=== PATIENT | female | born 1940 | race Caucasian/White ===

== ENCOUNTER 2020-03-25 12:29 | Outpatient (CLI) | payer MEDICARE, SELFPAY ==
--- NOTE | ~2020-03-25 | MMUS_ITS ---
EXAMINATION: MM diagnostic bisi BI w eliud, US breast RT limited HISTORY: Bruising of the right breast. TECHNIQUE: Additional 3-D tomosynthesis images of the breasts were performed and synthetic 2-D images were generated. CAD analysis was submitted and interpreted. High resolution right breast ultrasound was performed. COMPARISON: Comparison to multiple prior studies sequentially, with oldest reviewed study dated 09/2012. FINDINGS: MAMMOGRAPHIC FINDINGS: Breast composed of scattered areas of fibroglandular density. There are no suspicious masses, calcifi cations or architectural distortion in either breast to suggest malignancy. ULTRASOUND: Right breast ultrasound: In the area of palpable concern at 10:00 near the nipple there is a hyperechoic structure measuring 1 1 mm, consistent with focal fat, possibly fat necrosis. No suspicious masses to suggest malignancy. IMPRESSION: 1. No mammographic or sonographic evidence for malignancy. 2. Routine yearly screening mammogram and regular clinical breast examination are recommended. BI-RADS Category 2: Benign finding(s). Reviewed, dictated and finalized at location D. IMPRESSION: 1. No mammographic or sonographic evidence for malignancy. 2. Routine yearly screening mammogram and regular clinical breast examination a re recommended. BI-RADS Category 2: Benign finding(s).
== END 2020-03-25 12:30 | disposition home or self-care (01) ==
PROVIDERS: PCP Nurse Practitioner Family; Visit Provider Nurse Practitioner Family
DX: N63.10 Unspecified lump in the right breast, unspecified quadrant (principal); R92.2 Inconclusive mammogram
CPT/HCPCS: 76642; 77062; 77066; G0279

== ENCOUNTER 2020-08-24 07:49 | Outpatient (CLI) | payer MEDICARE, SELFPAY ==
--- NOTE | ~2020-08-24 | DEXA_ITS ---
Bone Density Report Name: Emperatriz Clark Age: 80 Sex: Female Ethnicity: White Date of : 1940 Indication: osteopenia; monitoring treatment; height loss; prior fracture; hysterectomy; Referring Provider: Sofie, Julieta Campbell Study: Bone densitometry was performed. Exam Date: August 24, 2020 Accession number: [id number] Bone Density: Region BMD T-score Z-score Classification AP Spine (L1, L2) 0.963 -0.1 2.3 Normal Femoral Neck (Left) 0.604 -2.2 0.0 Osteopenia Total Hip (Left) 0.678 -2.2 -0.2 Osteopenia Total Hip Bilateral Avg 0.711 -1.9 0.1 Osteopenia Femoral Neck (Right) 0.606 -2.2 0.0 Osteopenia Total Hip (Right) 0.743 -1.6 0.3 Osteopenia World Health Organization criteria for BMD impression classify patients as: Normal (T-score at or above -1.0), Osteopenia (T-score between -1.0 and -2.5), or Osteoporosis (T-score at or below -2.5). 10-year Fracture Risk: FRAX not reported because: Treated for osteoporosis Previous Exams: Region Exam Age BMD T-score BMD Change BMD Change Date g/cm2 vs Baseline vs Previous AP Spine(L1, L2) 08/24/2020 80 0.963 -0.1 0.080(9.1%)# 0.043(4.7%)* 08/23/2018 78 0.919 -0.5 0.037(4.1%)# -0.026(-2.7%)* 07/19/2016 75 0.945 -0.3 0.062(7.1%)# 0.003(0.3%) 06/26/2014 73 0.942 -0.3 0.060(6.8%)# 0.051(5.8%)# 06/06/2011 70 0.891 -0.8 0.008(0.9%) -0.020(-2.2%) 05/02/2009 68 0.911 -0.6 0.028(3.2%)* 0.023(2.6%) 09/21/2006 66 0.888 -0.8 0.005(0.6%) 0.005(0.6%) 09/13/2004 64 0.883 -0.9 Total Hip(Left) 08/24/2020 80 0.678 -2.2 0.031(4.7%)# -0.043(-6.0%)* 08/23/2018 78 0.721 -1.8 0.074(11.4%)# 0.027(3.9%)* 07/19/2016 75 0.693 -2.0 0.046(7.2%)# 0.003(0.5%) 06/26/2014 73 0.690 -2.1 0.043(6.7%)# 0.062(9.8%)# 06/06/2011 70 0.628 -2.6 -0.019(-2.9%) -0.033(-5.0%)* 05/02/2009 68 0.661 -2.3 0.014(2.2%) -0.016(-2.4%) 09/21/2006 66 0.677 -2.2 0.030(4.7%)* 0.030(4.7%)* 09/13/2004 64 0.647 -2.4 Total Hip(Right) 08/24/2020 80 0.743 -1.6 0.101(15.8%)# -0.031(-4.0%)* 08/23/2018 78 0.774 -1.4 0.132(20.6%)# 0.034(4.6%)* 07/19/2016 75 0.740 -1.7 0.098(15.2%)# -0.020(-2.7%) 06/26/2014 73 0.760 -1.5 0.118(18.4%)# 0.050(7.1%)# 06/06/2011 70 0.710 -1.9 0.068(10.6%)* 0.008(1.1%) 05/02/2009 68 0.702 -2.0 0.060(9.3%)* 0.046(7.1%)* 09/21/2006 66 0.655 -2.3 0.013(2.1%) 0.013(2.1%) 09/13/2004 64 0.642 -2.5 *Denotes significance at 95% confidence level,
== END 2020-08-24 07:50 | disposition home or self-care (01) ==
LOC: ANHIMG 07:52
PROVIDERS: PCP Nurse Practitioner Family; Visit Provider Nurse Practitioner Family
DX: M85.852 Other specified disorders of bone density and structure, left thigh (principal); M85.851 Other specified disorders of bone density and structure, right thigh; M85.88 Other specified disorders of bone density and structure, other site
CPT/HCPCS: 77080

== ENCOUNTER 2021-04-30 08:14 | Outpatient (CLI) | payer MEDICARE, SELFPAY ==
--- NOTE | ~2021-04-30 | MM_ITS ---
EXAMINATION: MM screening bisi BI w eliud HISTORY: Screening TECHNIQUE: Craniocaudal and mediolateral oblique 3-D tomosynthesis images were obtained and synthetic 2-D images were generated. CAD analysis was submitted and interpreted. COMPARISON: Comparison to multiple prior studies sequentially, with oldest reviewed study dated 10/2013. BREAST PARENCHYMAL COMPOSITION: There are scattered areas of fibroglandular density. FINDINGS: There is no evidence of suspicious mass, calcification, or architectural distortion to sugg est malignancy in either breast. There has been no suspicious interval change. IMPRESSION: 1. No mammographic evidence of malignancy. 2. Recommend routine screening mammography in one year. BI-RADS Category 1: Negative Reviewed, dictated and finalized at location A.
== END 2021-04-30 08:15 | disposition home or self-care (01) ==
LOC: ANHIMG 08:17
PROVIDERS: PCP Nurse Practitioner Family; Visit Provider Nurse Practitioner Family
DX: Z12.31 Encounter for screening mammogram for malignant neoplasm of breast (principal)
CPT/HCPCS: 77063; 77067

== ENCOUNTER 2021-11-19 07:35 | Emergency (ER) | payer MEDICARE, SELFPAY ==
[2021-11-19] VITALS (30 sets, daily range): BP systolic 116–155; BP diastolic 62–86; PULSE 73–90; RESP 12–29; O2SAT 94–100
--- NOTE | ~2021-11-19 | CT_ITS ---
EXAMINATION: CTA brain carotid DATE: 11/19/2021 08:37 INDICATION: Dizziness. Ataxia. TECHNIQUE: Computed tomographic angiography (CTA) of the head was performed without and with 100 mL O mnipaque-350 intravenous contrast. CTA of the neck was performed with intravenous contrast. Automated exposure control and iterative reconstruction technique were employed. The dose-length product was 1 469.96 mGy-cm. Maximum intensity projection and volume rendered 3D-reconstructions were created by vanesa krueger technologist on a separate workstation. COMPARISON: Head CT 01/15/2004 FINDINGS: HEAD CTA: There are scattered areas of low attenuation in the cerebral white matter. There is no intr acranial hemorrhage, acute infarction, or abnormal intracranial mass lesion. The ventricles are anai l in size. There is mild mucosal thickening in the paranasal sinuses. The mastoid air cells are anai l. The orbits are normal. The vertebral arteries are codominant. There is no significant stenosis of basilar artery or the posterior cerebral arteries. There is no significant stenosis of the intracrani al internal carotid arteries or the anterior or middle cerebral arteries. Anterior communicating ney ry is normal. The posterior communicating arteries are normal. There is no aneurysm. NECK CTA: There is mild scarring at the lung apices. There is a 10 mm nodule in left thyroid lobe, li manju not clinically significant. There are no pathologically enlarged lymph nodes. There is no signif icant stenosis of the vertebral arteries. There is mild plaque in the proximal internal carotid arter ies. There is 0% stenosis of the proximal right internal carotid artery relative to normal distal art laci lumen diameter (NASCET criteria). There is 12% stenosis of the proximal left internal carotid art laci relative to normal distal artery lumen diameter. There is moderate cervical spondylosis. IMPRESSION: 1. Mild nonspecific cerebral white matter disease, which likely represents chronic small vessel ische cuauhtemoc disease. 2. No aneurysm or significant intracranial arterial stenosis. 3. 0% stenosis of the proximal right internal carotid artery relative to normal distal artery lumen d iameter (NASCET criteria). 4. 12% stenosis of the proximal left internal carotid artery relative to normal distal artery lumen d iameter. Reviewed, dictated and finalized at location A. NEYMAN GLAZIER IMPRESSION: 1. 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 2. No aneurysm or significant intracranial arterial stenosis. 3. 0% stenosis of the proximal right internal carotid artery relative to normal distal artery lumen diameter (NASCET criteria). 4. 12% stenosis of the proximal left internal carotid artery relative to normal distal artery lumen diameter.
--- NOTE | 2021-11-19 07:40 | ECG_ITS ---
Measurements Intervals [place] Rate: 69 P: 58 DC: 151 QRS: 27 QRSD: 77 T: 69 QT: 384 QTc: 411 Interpretive Statements SINUS RHYTHM MINIMAL Q WAVES- HIGH LATERAL LEADS BORDERLINE ECG Electronically Signed On 11-19-2021 9:50:38 SATELLITE INSTRUCTION FACILITATOR by James Dotson D.O.
[2021-11-19 07:54] LABS: Basophils Percent Auto 0.6 % (0.2-1.2); Eosinophils Absolute Auto 0.1 K/mm3 (0-0.3); Eosinophils Percent Auto 1.7 % (0-4.4); Hematocrit 44.8 % (37.0-47.0); Hemoglobin 15.4 g/dL (12.0-15.0); Immature Granulocyte Absolute 0.01 K/mm3 (0.00-0.031); Immature Granulocyte Percent A 0.2 % (0-0.5); Lymphocytes Absolute Auto 1.26 K/mm3 (0.9-3.2); Lymphocytes Percent Auto 19.1 % (18.3-44.2); Mean Corpuscular HGB Conc 34.4 g/dl (32-36); Mean Corpuscular Volume 93.1 fl (80-100); Mean Platelet Volume 9.7 fl (7.4-10.4); Monocytes Absolute Auto 0.4 K/mm3 (0.1-0.6); Monocytes Percent Auto 6.5 % (2.6-8.5); Neutrophils Absolute Auto 4.8 K/mm3 (1.3-6.7); Neutrophils Percent Auto 71.9 % (45.5-73.1); Platelet Count Result 236 k/mm3 (150-375); Red Blood Count 4.81 M/mm3 (4.2-5.4); Red Cell Distribution Width 13.1 % (11.5-14.5); White Blood Count 6.6 K/mm3 (4.5-10.0)
[2021-11-19 08:13] LABS: Alanine Aminotransferase 16 U/L (4-35); Albumin Level 4.2 g/dL (3.5-5.1); Alkaline Phosphatase 88 U/L (38-126); Anion Gap 8 mmol/L (8-16); Aspartate Amino Transferase 23 U/L (14-36); Bilirubin,Total 0.8 mg/dL (0.2-1.3); Blood Urea Nitrogen 12 mg/dL (7-17); Calcium 9.5 mg/dL (8.4-10.2); Carbon Dioxide 27 mmol/L (22-30); Chloride 104 mmol/L (98-107); Estimated Glomerular Filt Rate > 60; Glucose 111 mg/dL (65-110); Lipase 77 U/L (23-300); Potassium 3.9 mmol/L (3.4-5.0); Sodium 139 mmol/L (137-145)
--- NOTE | 2021-11-19 08:25 | ED.DIZZY ---
HPI - Dizziness General Chief Complaint: Dizziness Stated Complaint: dizzy with nausea Time Seen by Provider: 11/19/21 07:44 Source: patient and RN notes reviewed Mode of arrival: ambulatory Limitations: no limitations History of Present Illness HPI Narrative: This is a 81 year old female who presents for evaluation of dizziness. She noticed dizziness yesterday associated with nausea and dry heaves. She states her dizziness is not spinning . It is worse with turn her head to the left. She is most comfortable laying on her right side. This started 2 weeks ago and she was evaluated by PCP. She reports she had normal labs performed and she is scheduled to get carotid Doppler and brain scan . Her symptoms resolved but returned yesterday. She reports she is able to walk by hold onto the wall. She denies headache, blurred vision, speech difficulty, focal weakness, numbness or tingling. EMS gave patient Zofran in route. Related Data Home Medications Medication Instructions Recorded Confirmed ascorbate calcium (vitamin C) 500 500 mg PO DAILY 03/10/20 03/10/20 mg tablet aspirin 81 mg tablet,delayed 81 mg PO DAILY 03/10/20 03/10/20 release cholecalciferol (vitamin D3) 10 10 mcg PO DAILY 03/10/20 03/10/20 mcg (400 unit) capsule ibandronate 150 mg tablet 150 mg PO ONCE 03/10/20 03/10/20 levothyroxine 75 mcg capsule 75 mcg PO DAILY 03/10/20 03/10/20 Allergies Allergy/AdvReac Type Severity Reaction Status Date / Time No Known Allergies Allergy Verified 11/19/21 07:41 Review of Systems Review of Systems: All systems reviewed & are unremarkable except as noted in HPI and below Constitutional: Constitutional: Denies chills Eyes: Eyes: Denies change in vision and Denies photophobia ENT: Denies dysphagia, Reports dizziness, Denies nasal congestion and Denies sore throat Cardiovascular: Cardiovascular: Denies chest pain and Denies radiating jaw, neck or arm pain Respiratory: Respiratory: Reports no additional respiratory complaints, Denies chest congestion, Denies cough and Denies dyspnea Gastrointestinal: Gastrointestinal: Denies abdominal pain, Denies diarrhea, Reports nausea and Denies vomiting Neurologic: Denies vertigo, Reports dizziness, Denies headache(s), Denies focal weakness and Denies numbness [facility] Past Medical History Medical History (Updated 11/19/21 @ 12:33 by Perlita Obregon MD) High cholesterol Osteoporosis Thyroid disorder Vitamin D deficiency Surgical History Surgical History H/O knee surgery knee cap repair H/O: hysterectomy Ulnar nerve injury Family History Family History Father Heart disease Mother Heart disease S/P triple vessel bypass Sibling Hypertension Unknown Heart disease Cerebrovascular accident Hypertension Social History Social History Smoking status: Never smoker Alcohol intake: never Substance use: never Gender identity (if verbalized by the patient): Female Exam Const: General: no acute distress and alert Orientation/consciousness: patient oriented x3 HENMT: Head: normocephalic and atraumatic Ears: hearing grossly normal bilaterally, external ears normal and TM's normal bilaterally Face and sinus: normal facial exam, sinuses nontender and face symmetric Mouth: Yes Normal oral and palatal mucosa present, Yes lip normal, Yes tongue normal, Yes oropharynx normal and Yes moist mucous membranes Throat: posterior oropharynx normal, tonsils normal and uvula midline Eyes: Pupils: Equal, round and reactive pupils present EOM: EOMs intact bilaterally Chest: Chest palpation & inspection: normal inspection of the chest Resp: Effort & Inspection: normal respiratory effort and no retractions Auscultation: clear to auscultation bilaterally C
--- NOTE | 2021-11-19 08:30 | PC.NURSE ---
PT. REPORTS UNABLE TO VOID AT THIS TIME.
[2021-11-19] MEDS: MECLIZINE HCL 25 MG TABLET PO (08:45)
[2021-11-19] MEDS: SODIUM CHLORIDE 0.9% IV 1,000 ML 999 ML IV CONT (08:45)
[2021-11-19 09:26] LABS: Add Urine Microscopic? YES; Appearance Urine Clear (Clear); Bilirubin Urine Negative (Negative); Blood Urine Negative (Negative); Color Urine Straw (Yellow); Glucose Urine UA Negative (Negative); Ketones Urine Trace mg/dL (Negative); Leukocyte Esterase Ur Negative LEU/UL (Negative); Nitrate Urine Negative (Negative); Protein Urine Negative (Negative); RBC Urine 0-2 /hpf (0-2); Specific Grav Ur 1.023 (1.001-1.035); Urobilinogen Urine Negative mg/dL (<2.0); WBC Urine 0-3 /hpf
[2021-11-19] MEDS: PROMETHAZINE HCL 25 MG/ML AMPUL 12.5 MG IV PUSH (10:06)
== END 2021-11-19 12:30 | disposition home or self-care (01) ==
PROVIDERS: Emergency Provider General Practice; PCP Nurse Practitioner Family
DX: R42 Dizziness and giddiness (principal); E78.00 Pure hypercholesterolemia, unspecified; M81.0 Age-related osteoporosis without current pathological fracture; E07.9 Disorder of thyroid, unspecified; E55.9 Vitamin D deficiency, unspecified; Z79.82 Long term (current) use of aspirin; R90.82 White matter disease, unspecified; R94.31 Abnormal electrocardiogram [ECG] [EKG]
CPT/HCPCS: 36415; 70496; 70498; 80053; 81001; 83690; 85025; 93005; 96361; 96374; 99284; A9270; J2550; J7030; Q9967

== ENCOUNTER 2022-03-03 07:21 | Outpatient (CLI) | payer MEDICARE, SELFPAY ==
--- NOTE | ~2022-03-03 | DEXA_ITS ---
Bone Density Report Name: BRUNA LUJAN Age: 81 Sex: Female Ethnicity: White Date of : 1940 Indication: osteopenia; monitoring treatment; height loss; hysterectomy; postmenopausal Referring Provider: VIVEK, ELEAZAR Campbell Study: Bone densitometry was performed. Exam Date: March 03, 2022 Accession number: [id number] Bone Density: Region BMD T-score Z-score Classification AP Spine(L1, L2, L3) 1.016 0.0 2.6 Normal Femoral Neck (Left) 0.610 -2.2 0.1 Osteopenia Total Hip (Left) 0.661 -2.3 -0.3 Osteopenia Femoral Neck (Right) 0.606 -2.2 0.1 Osteopenia Total Hip (Right) 0.727 -1.8 0.3 Osteopenia Total Hip Mean 0.694 -2.1 0.0 Osteopenia World Health Organization criteria for BMD impression classify patients as: Normal (T-score at or above -1.0), Osteopenia (T-score between -1.0 and -2.5), or Osteoporosis (T-score at or below -2.5). 10-year Fracture Risk: FRAX not reported because: Treated for osteoporosis Previous Exams: Region Exam Age BMD T-score BMD Change BMD Change Date g/cm2 vs Baseline vs Previous AP Spine (L1-L3) 03/03/2022 81 1.016 0.0 0.023 (2.3%) 0.014 (1.4%) 08/23/2018 78 1.002 -0.1 0.009 (0.9%) 0.007 (0.7%) 07/19/2016 75 0.995 -0.2 0.002 (0.2%) 0.002 (0.2%) 06/26/2014 73 0.994 -0.2 Total Hip(Left) 03/03/2022 81 0.661 -2.3 -0.029 (-4.3%) -0.017 (-2.5%) 08/24/2020 80 0.678 -2.2 -0.013 (-1.8%) -0.043 (-6.0%) 08/23/2018 78 0.721 -1.8 0.031 (4.4%)* 0.027 (3.9%)* 07/19/2016 75 0.693 -2.0 0.003 (0.5%) 0.003 (0.5%) 06/26/2014 73 0.690 -2.1 Total Hip(Right) 03/03/2022 81 0.727 -1.8 -0.033 (-4.4%) -0.016 (-2.2%) 08/24/2020 80 0.743 -1.6 -0.017 (-2.2%) -0.031 (-4.0%) 08/23/2018 78 0.774 -1.4 0.014 (1.8%) 0.034 (4.6%)* 07/19/2016 75 0.740 -1.7 -0.020 (-2.7%) -0.020 (-2.7%) 06/26/2014 73 0.760 -1.5 *Denotes significance at 95% confidence level, LSC for AP Spine = 0.022 g/cm2, LSC for Total Hip = 0.027 g/cm2 Clinical Information Provided by Patient: Is being treated for osteoporosis Has used the following medications: Boniva (i.e. ibandronate), Vitamin D Has the following medical conditions: Hysterectomy Patient maximum height was 67.5 Menopause Age: 30 Does not regularly consume dairy products Onset of menses at age 15 Number of children 3 Impression: The patient has low bone mass, based on the Left Total Hip T-score.
== END 2022-03-03 07:22 | disposition home or self-care (01) ==
PROVIDERS: PCP Nurse Practitioner Family; Visit Provider Nurse Practitioner Family
DX: M81.0 Age-related osteoporosis without current pathological fracture (principal); M85.852 Other specified disorders of bone density and structure, left thigh; M85.851 Other specified disorders of bone density and structure, right thigh
CPT/HCPCS: 77080

== ENCOUNTER 2022-09-28 11:43 | Outpatient (CLI) | payer MEDICARE, SELFPAY ==
--- NOTE | ~2022-09-28 | MM_ITS ---
EXAMINATION: MM screening [facility] BI w eliud HISTORY: Screening mammogram TECHNIQUE: Craniocaudal and mediolateral oblique 3-D tomosynthesis images were obtained and synthetic 2-D images were generated. CAD analysis was submitted and interpreted. COMPARISON: 04/30/2021, 03/25/2020, 08/14/2019, 07/31/2017 BREAST PARENCHYMAL COMPOSITION: There are scattered areas of fibroglandular density. FINDINGS: No suspicious mass, calcification, or architectural distortion are identified in either nadja ast to suggest malignancy. There has been no suspicious interval change. IMPRESSION: 1. No mammographic evidence of malignancy. 2. Recommend routine screening mammography in one year. BI-RADS Category 1: Negative Reviewed, dictated and finalized at location A. DESIGN ENGINEER
== END 2022-09-28 11:44 | disposition home or self-care (01) ==
LOC: ANHIMG 11:45
PROVIDERS: PCP Nurse Practitioner Family; Visit Provider Nurse Practitioner Family
DX: Z12.31 Encounter for screening mammogram for malignant neoplasm of breast (principal)
CPT/HCPCS: 77063; 77067

== ENCOUNTER → 2023-08-08 10:09 | Outpatient (REF) | payer MEDICARE, SELFPAY | LOC: ANHLAB 10:09 | PROVIDERS: PCP Nurse Practitioner Family; Visit Provider Plastic Surgery | DX: R22.0 Localized swelling, mass and lump, head (principal) | CPT/HCPCS: 88305 ==

== ENCOUNTER 2024-01-27 09:47 | Observation (INO) | payer MEDICARE, SELFPAY ==
[2024-01-27] VITALS (48 sets, daily range): BP systolic 123–171; BP diastolic 57–102; PULSE 62–94; RESP 8–23; TEMP 36.5–36.9; O2SAT 92–100; BMI 25.0
--- NOTE | ~2024-01-27 | MR_ITS ---
EXAMINATION: MR brain/brain stem wo/w con DATE: 01/28/2024 14:03 INDICATION: Vertigo TECHNIQUE: Magnetic resonance imaging (MRI) of the brain and brainstem was performed without and with 15 mL Multihance intravenous contrast. Sequences included sagittal and axial T1-weighted SE, axial d iffusion-weighted FS SE, axial 3D SWAN, axial T2-weighted FLAIR, and axial T2-weighted FSE. Postcontr ast axial and coronal T1-weighted SE was obtained. Apparent diffusion coefficient (ADC) maps were cre ated. COMPARISON: None. FINDINGS: There are no areas of restricted diffusion to suggest acute infarction. No intracranial hemorrhage or abnormal intracranial mass lesion. There are scattered areas of nonspecific increased T2-weighted si gnal intensity in the cerebral white matter, predominantly involving the deep and periventricular whi te matter. There are no intraparenchymal signal abnormalities seen on the other pulse sequences. The ventricles are symmetric and normal in size. There are no abnormal extra-axial fluid collections. Jorge w voids are seen in the cerebral arteries on the T2-weighted sequences consistent with their expected patency. Mild mucosal thickening the bilateral ethmoid sinuses. Visualized orbits and soft tissues a re unremarkable. There are no areas of abnormal enhancement on the post contrast images. IMPRESSION: 1. No acute intracranial process or abnormally enhancing brain lesions. 2. Moderate scattered periventricular predominant nonspecific white matter T2 hyperintensity which is within normal limits for age and likely sequela of chronic small vessel ischemic disease. Reviewed, dictated and finalized at location A. IMPRESSION: 1. No acute intracranial process or abnormally enhancing brain lesions. 2. Moderate scattered periventricular predominant nonspecific white matter T2 h yperintensity which is within normal limits for age and likely sequela of chron ic small vessel ischemic disease.
--- NOTE | ~2024-01-27 | US_ITS ---
EXAMINATION: US carotid duplex BI DATE: 01/28/2024 11:26 INDICATION: Infarct in the right thalamus. Lightheadedness. Dizziness. TECHNIQUE: Grayscale, color Doppler, and pulsed Doppler images of the cervical carotid arteries were obtained. The degree of vessel stenosis is placed in one of the following categories: normal, <50%, 5 0-69%, >=70% but less than near-occlusion, near-occlusion, or total occlusion. Note that percent sten osis relative to normal distal artery lumen diameter is indirectly measured from velocity measurement s as described by Zeyad, et al. Radiology 2003; 229:340-346. COMPARISON: CTA neck 11/19/2021 FINDINGS: RIGHT: The right common carotid artery (CCA) peak systolic velocity (PSV) is 61 cm/s. The right internal car otid artery (ICA) PSV is 59 cm/s. The right ICA end-diastolic velocity (EDV) is 20 cm/s. The right IC A/CCA PSV ratio is 1.0. Grayscale and color Doppler images yield an estimate of <50% diameter reducti on from plaque in the ICA. There is antegrade flow in the right vertebral artery. LEFT: The left CCA PSV is 63 cm/s. The left ICA PSV is 64 cm/s. The left ICA EDV is 18 cm/s. The left ICA/C CA PSV ratio is 1.0. Grayscale and color Doppler images yield an estimate of <50% diameter reduction from plaque in the ICA. There is antegrade flow in the left vertebral artery. IMPRESSION: 1. <50% stenosis in the right internal carotid artery. 2. <50% stenosis in the left internal carotid artery. Reviewed, dictated and finalized at location A.
--- NOTE | ~2024-01-27 | CT_ITS ---
EXAMINATION: CT brain wo con DATE: 01/27/2024 11:00 INDICATION: Dizziness TECHNIQUE: Computed tomography (CT) of the head was performed without intravenous contrast. Sagittal and coronal reconstructions were performed. The mA was adjusted according to patient size. Iterative reconstruction technique was employed. The dose-length product was 605.33 mGy-cm. COMPARISON: Head CT and CT angiogram dated 11/19/2021 FINDINGS: No acute intracranial hemorrhage, acute infarction or abnormal extra axial fluid collection. Again se en is moderate scattered white matter hypoattenuation consistent with chronic small vessel ischemic d isease. Symmetric prominence of the sulci consistent with mild age-appropriate diffuse cerebral volum e loss. Ventricles are normal and symmetric. No mass/mass effect. Intracranial calcified cerebral ath erosclerosis is noted. The orbits and mastoid air cells are normal. Mild mucosal thickening the bilat eral ethmoid sinuses. IMPRESSION: 1. Stable appearance of age-related changes in the brain. No acute intracranial process. Reviewed, dictated and finalized at location A.
--- NOTE | 2024-01-27 09:54 | ECG_ITS ---
SEE SCANNED COPY FOR CONFIRMED REPORT MTDD
--- NOTE | 2024-01-27 10:18 | ED.DIZZY ---
HPI - Dizziness General Chief Complaint: Dizziness Stated Complaint: dizzy Time Seen by Provider: 01/27/24 09:49 History of Present Illness HPI Narrative: 83-year-old female presenting to the emergency department for evaluation of onset of dizziness. Patient states she woke up this morning she felt dizzy and lightheaded. Patient denies any spinning sensation. Patient states that she did not drink very much water yesterday but did drink multiple diet Cokes. Patient denies any falls or injuries. While laying flat in bed patient denies any current symptoms. Patient denies any chest pain or shortness of breath. Related Data Home Medications Medication Instructions Recorded Confirmed ascorbate calcium (vitamin C) 500 500 mg PO DAILY 03/10/20 01/27/24 mg tablet aspirin 81 mg tablet,delayed 81 mg PO DAILY 03/10/20 01/27/24 release (Estuardo Low Dose Aspirin) ibandronate 150 mg tablet 150 mg PO MONTHLY 03/10/20 01/27/24 levothyroxine 75 mcg capsule 75 mcg PO DAILY 03/10/20 01/27/24 ergocalciferol (vitamin D2) 1,250 1,250 mcg PO WEEKLY 01/27/24 01/27/24 mcg (50,000 unit) capsule Allergies Allergy/AdvReac Type Severity Reaction Status Date / Time No Known Allergies Allergy Verified 08/08/23 09:52 Review of Systems Review of Systems: All systems reviewed & are unremarkable except as noted in HPI and below PMFSH Past Medical History Medical History (Updated 01/27/24 @ 15:57 by Estephania Jones PA-C) History of psoriasis Hyperlipidemia Hypothyroidism Osteoporosis Vitamin D deficiency Surgical History Surgical History (Updated 01/27/24 @ 16:02 by Estephania Jones PA-C) History of hysterectomy History of knee surgery Open reduction internal fixation left patellar fracture status post hardware removal. History of orthopedic surgery Left cubital tunnel release. Family History Family History Father Heart disease Mother Heart disease S/P triple vessel bypass Sibling Hypertension Unknown Heart disease Cerebrovascular accident Hypertension Social History Social History (Updated 01/27/24 @ 15:56 by Estephania Jones PA-C) Social History: Surrogate medical decision maker: Code status: Full code. Smoking status: Never smoker Alcohol intake: never Substance use: never Do You Feel Safe in your Home?: Yes Lack of Transportation: No Lack of Food: Never True Current Housing: I Have Housing Concerned About Future Housing: No Difficulty Paying Gas/Electric Bills: No Difficulty Paying for Meds: No Currently Unemployed: No Education: High School Diploma/GED Difficulty w/ Childcare or Family Care: No Living arrangements: alone Occupation/Education: retired Spiritual care concerns: No Exam Narrative: APPEARANCE: Well appearing, no pain, no distress, well-nourished. HEAD: normocephalic, atraumatic. EYES: PERRLA/EOMI, conjunctivae clear. NOSE: Normal no drainage EARS:TMS clear with good light reflex. THROAT: Pharynx clear, no exudate. NECK: Supple. No adenopathy, no masses. RESPIRATORY: Airway patent, respirations nonlabored. Clear to auscultation bilaterally, no rales, rhonchi, wheezing. CARDIOVASCULAR: Regular rate and rhythm without murmurs rubs or gallops. ABDOMINAL: Soft, nontender, nondistended, normal bowel sounds MUSCULOSKELETAL: Moves all extremities. Strength/ROM intact, No edema, No calf tenderness. NEURO: Alert. Cranial nerves II through XII intact. Grossly intact. Vertigo symptoms able to be induced with sitting up or ambulation. SKIN: Warm, dry. Normal Color Course Course Emergency Course: Patient was having persistent vertigo so she was admitted to the hospitalist for further workup. Vital Signs Vital signs: Vital Signs Temperature 98.2 F 01/27/24 09:49 Pulse Rate 67 01/27/24 09:49 Respiratory Rate 16 01/27/24 09:49 Blood Pressure 154/
[2024-01-27 10:22] LABS: Basophils Percent Auto 0.6 % (0.2-1.2); Eosinophils Absolute Auto 0.1 K/mm3 (0-0.3); Eosinophils Percent Auto 1.2 % (0-4.4); Hematocrit 45.4 % (37.0-47.0); Hemoglobin 15.1 g/dL (12.0-15.0); Immature Granulocyte Absolute 0.01 K/mm3 (0.00-0.031); Immature Granulocyte Percent A 0.2 % (0-0.5); Lymphocytes Absolute Auto 1.08 K/mm3 (0.9-3.2); Lymphocytes Percent Auto 21.1 % (18.3-44.2); Mean Corpuscular HGB Conc 33.3 g/dl (32-36); Mean Corpuscular Hemoglobin 30.7 pg (26-34); Mean Corpuscular Volume 92.3 fl (80-100); Mean Platelet Volume 9.7 fl (7.4-10.4); Monocytes Absolute Auto 0.3 K/mm3 (0.1-0.6); Monocytes Percent Auto 5.9 % (2.6-8.5); Neutrophils Absolute Auto 3.6 K/mm3 (1.3-6.7); Platelet Count Result 230 k/mm3 (150-375); Red Blood Count 4.92 M/mm3 (4.2-5.4); Red Cell Distribution Width 13.6 % (11.5-14.5); White Blood Count 5.1 K/mm3 (4.5-10.0)
[2024-01-27 10:34] LABS: Alanine Aminotransferase 12 U/L (6-35); Albumin Level 4.3 g/dL (3.5-5.1); Alkaline Phosphatase 89 U/L (38-126); Anion Gap 6 mmol/L (4-12); Aspartate Amino Transferase 19 U/L (14-36); Bilirubin,Total 0.9 mg/dL (0.2-1.3); Blood Urea Nitrogen 6 mg/dL (7-17); Calcium 9.3 mg/dL (8.4-10.2); Carbon Dioxide 23 mmol/L (22-30); Chloride 108 mmol/L (98-107); Estimated CRCL calculation 68 ml/min; Estimated Glomerular Filt Rate > 60; Glucose 113 mg/dL (65-110); Potassium 3.9 mmol/L (3.4-5.0); Prothrombin Time 13.9 Seconds (11.1-14.7); Sodium 137 mmol/L (137-145)
[2024-01-27 10:45] LABS: Add Urine Microscopic? YES; Appearance Urine Clear (Clear); Bacteria Urine None Seen /hpf; Bilirubin Urine Negative (Negative); Blood Urine Negative (Negative); Color Urine Yellow (Yellow); Glucose Urine UA Negative (Negative); Ketones Urine 1+ mg/dL (Negative); Leukocyte Esterase Ur 2+ LEU/UL (Negative); Need Manual Microscopic Reviewed; Nitrate Urine Negative (Negative); Non Pathogenic Casts 0-2; Protein Urine Negative (Negative); Squamous Epithelial Cell Urine None Seen /hpf (Few); Urobilinogen Urine 0.2 mg/dL (<2.0); WBC Urine 0-5 /hpf (0-3)
[2024-01-27] MEDS: MECLIZINE HCL 25 MG TABLET PO ×2 (12:59→21:18)
[2024-01-27] MEDS: diazePAM INJ (*CRX) 10 MG/2 ML SYRINGE 2.5 MG IV PUSH (14:44)
--- NOTE | 2024-01-27 15:53 | PM.IMHP ---
H&P: HPI History of Present Illness Date/Time: 01/27/24 16:00 Chief Complaint: Dizziness. Narrative: This is an 83-year-old female with hypothyroidism and osteoporosis presented to the emergency department for evaluation of dizziness. The patient provides the following history. She felt fine when she went to bed last night and just after she got out of bed this morning she suddenly developed dizziness. She has difficulties describing her dizziness; she does not feel as though she is presyncopal but she also denies sensations of spinning. The dizziness is associated with nausea and dry heaves. Symptoms are worse with movement of the head and seemed to improve when lying supine with eyes closed. She has had similar episodes over the years. She denies visual changes, aural fullness, tinnitus, facial droop, difficulty speaking and swallowing, focal weakness, and paresthesias. She also denies recent cold and flu symptoms. No palpitations, sensations of racing heart, or history of atrial fibrillation. She has not had any falls or head trauma. Friend at bedside is concerned that she is getting carbon monoxide exposure from an exhaust leak in her car; the patient apparently did a lot of driving yesterday. In the ED: Blood pressures have been as high as 171/89 though she denies history of hypertension. Labs were significant for a WBC count of 5.1, hemoglobin 15.1, BUN 6, creatinine 0.60, glucose 113. Urine is positive for 1+ ketones, 2+ leukocyte esterase, and 6 to [address] showed stable appearance of age-related changes but no acute intracranial process. She received 25 mg p.o. meclizine and 2.5 mg IV diazepam without much benefit and she is being admitted in this setting for further workup. Review of Systems Review of Systems: 12 systems were reviewed and are negative except for as per HPI. [facility] Past Medical History Medical History (Updated 01/27/24 @ 21:46 by Estephania Jones PA-C) Hyperlipidemia Hypothyroidism Osteoporosis Psoriasis Vitamin D deficiency Surgical History Surgical History History of hysterectomy History of knee surgery Open reduction internal fixation left patellar fracture status post hardware removal. History of orthopedic surgery Left cubital tunnel release. Family History Family History Father Heart disease Mother Heart disease S/P triple vessel bypass Sibling Hypertension Unknown Heart disease Cerebrovascular accident Hypertension Social History Social History (Updated 01/27/24 @ 21:46 by Estephania Jones PA-C) Social History: Surrogate medical decision maker: Kit and Trena Clark, children. Code status: Full code. Smoking status: Never smoker Alcohol intake: never Substance use: never Do You Feel Safe in your Home?: Yes Lack of Transportation: No Lack of Food: Never True Current Housing: I Have Housing Concerned About Future Housing: No Difficulty Paying Gas/Electric Bills: No Difficulty Paying for Meds: No Currently Unemployed: No Education: High School Diploma/GED Difficulty w/ Childcare or Family Care: No Living arrangements: alone Occupation/Education: retired Spiritual care concerns: No Meds Home Medications and Allergies Home Medications Medication Instructions Recorded Confirmed Type ascorbate calcium (vitamin C) 500 500 mg PO DAILY 03/10/20 01/27/24 History mg tablet aspirin 81 mg tablet,delayed 81 mg PO DAILY 03/10/20 01/27/24 History release (Estuardo Low Dose Aspirin) ibandronate 150 mg tablet 150 mg PO MONTHLY 03/10/20 01/27/24 History levothyroxine 75 mcg capsule 75 mcg PO DAILY 03/10/20 01/27/24 History meclizine 25 mg tablet 25 mg PO QID PRN dizziness #14 tabs 11/19/21 01/27/24 Rx ondansetron 4 mg disintegrating 4 mg PO Q8H PRN nausea and 11/19/21 01/27/24 Rx tablet vo
--- NOTE | 2024-01-27 16:58 | PC.NURSE ---
This patient, Emperatriz Clark, was admitted to Medical Room 243-. Patient/family oriented to hospital policies and general routines including ID bracelet, bed and alarms, visiting hours, pain management, procedures, bathroom and other care routines, personal items, smoking policy, room service/diet, and visiting hours. Information on how to activate the Rapid Response Team has been discussed. Patient/Family are encouraged to report perceived risks to care and to ask questions if they do not understand what they are told or what they should do.
[2024-01-28] VITALS (17 sets, daily range): BP systolic 97–128; BP diastolic 55–70; PULSE 64–110; RESP 16–18; TEMP 36.5–36.8; O2SAT 93–99
[2024-01-28] MEDS: LEVOTHYROXINE SODIUM 75 MCG TABLET PO (07:37)
--- NOTE | 2024-01-28 07:47 | P.PNIM_ITS ---
Progress Note: A&P Assessment and Plan (1) Vertigo: Code(s): R42 - Dizziness and giddiness Status: Acute Assessment and Plan: 01/28/24: * Orthostatic blood pressures did not reveal a significant drop * Patient denies any pain in the ears, congestion, recent illness * She reports a lightheaded feeling with associated nausea and vomiting with position changes however she does not have any dizziness or spinning * Head CT was negative for any acute intracranial process, only showed age- related changes which were stable * No neuro deficits on exam today * MRI of the brain ordered for today * Will obtain an echocardiogram * Will also obtain carotid Doppler study today * Continue fall precautions * Continue orthostatic blood pressures Q shift * PT ordered for vestibular training * Continue meclizine * Zofran ordered for nausea * Will check a lipid panel * TSH 2.010, currently on Synthroid * Continue cardiac telemetry monitoring (2) Elevated blood pressure reading: Code(s): R03.0 - Elevated blood-pressure reading, without diagnosis of hypertension Status: Acute Assessment and Plan: 01/28/24: * Initial blood pressure readings 154/97 to 171/89 * No medications were given * Blood pressure currently ranging 115/60 to 123/67 * Patient denies history of hypertension * Will consider starting blood pressure medication after MRI of the brain is resulted (3) Hypothyroidism: Code(s): E03.9 - Hypothyroidism, unspecified Status: Acute Assessment and Plan: 01/28/24: * Continue Synthroid * TSH was 2.010 Time Spent With Patient Time with patient: Greater than 35 minutes Subjective Date/time seen: 01/28/24 07:47 Interval history: This is an 83-year-old female who presented to the hospital on 01/27/2024 with dizziness. Workup in the hospital included head CT which was negative for any acute intracranial process only showed stable age-related changes. Initial labs were essentially unremarkable, TSH was 2.010. A UA was also performed which showed 1+ urine ketones, 2+ leukocytes, 6-10 urine RBC. No urine culture was obtained. EKG showed sinus rhythm with a rate of 63, QTC 408. While in the ED she was found to have high blood pressure of 171/89 however denied history of hypertension. She received meclizine and diazepam while in the ED. Nothing was given for blood pressure while in ER or overnight. On examination today patient is alert and oriented x3, lying in the bed. Patient denies and fever, chills, headache, vision changes, nausea, vomiting, diarrhea, abdominal pain, chest pain, shortness of breath. Her neuro exam was negative. Patient endorses lightheadedness however no dizziness. Orthostatic blood pressures remained normal without significant drop. Plan is for an MRI of the brain, Carotid doppler, echocardiogram, and PT evaluation today for vestibular training. Review of Systems Review of Systems: 12 systems were reviewed and are negativ e except for as per HPI. Constitutional: Constitutional: Reports as per HPI and Reports no additional constitutional complaints Eyes: Eyes: Reports as per HPI and Reports no additional eye complaints ENT: Reports system reviewed and no additional complaints, except as documented and Reports as per HPI Cardiovascular: Cardiovascular: Reports as per HPI and Reports no additional cardiovascular complaints Respiratory: Respiratory: Reports as per HPI and Reports no additional respiratory complaints Gastrointestinal: Gastroint
--- NOTE | 2024-01-28 07:47 | PM.IMPN ---
Progress Note: A&P Assessment and Plan (1) Vertigo: Code(s): R42 - Dizziness and giddiness Status: Acute Assessment and Plan: 01/28/24: Orthostatic blood pressures did not reveal a significant drop Patient denies any pain in the ears, congestion, recent illness She reports a lightheaded feeling with associated nausea and vomiting with position changes however she does not have any dizziness or spinning Head CT was negative for any acute intracranial process, only showed age-related changes which were stable No neuro deficits on exam today MRI of the brain ordered for today Will obtain an echocardiogram Will also obtain carotid Doppler study today Continue fall precautions Continue orthostatic blood pressures Q shift PT ordered for vestibular training Continue meclizine Zofran ordered for nausea Will check a lipid panel TSH 2.010, currently on Synthroid Continue cardiac telemetry monitoring (2) Elevated blood pressure reading: Code(s): R03.0 - Elevated blood-pressure reading, without diagnosis of hypertension Status: Acute Assessment and Plan: 01/28/24: Initial blood pressure readings 154/97 to 171/89 No medications were given Blood pressure currently ranging 115/60 to 123/67 Patient denies history of hypertension Will consider starting blood pressure medication after MRI of the brain is resulted (3) Hypothyroidism: Code(s): E03.9 - Hypothyroidism, unspecified Status: Acute Assessment and Plan: 01/28/24: Continue Synthroid TSH was 2.010 Time Spent With Patient Time with patient: Greater than 35 minutes Subjective Date/time seen: 01/28/24 07:47 Interval history: This is an 83-year-old female who presented to the hospital on 01/27/2024 with dizziness. Workup in the hospital included head CT which was negative for any acute intracranial process only showed stable age-related changes. Initial labs were essentially unremarkable, TSH was 2.010. A UA was also performed which showed 1+ urine ketones, 2+ leukocytes, 6-10 urine RBC. No urine culture was obtained. EKG showed sinus rhythm with a rate of 63, QTC 408. While in the ED she was found to have high blood pressure of 171/89 however denied history of hypertension. She received meclizine and diazepam while in the ED. Nothing was given for blood pressure while in ER or overnight. On examination today patient is alert and oriented x3, lying in the bed. Patient denies and fever, chills, headache, vision changes, nausea, vomiting, diarrhea, abdominal pain, chest pain, shortness of breath. Her neuro exam was negative. Patient endorses lightheadedness however no dizziness. Orthostatic blood pressures remained normal without significant drop. Plan is for an MRI of the brain, Carotid doppler, echocardiogram, and PT evaluation today for vestibular training. Review of Systems Review of Systems: 12 systems were reviewed and are negative except for as per HPI. Constitutional: Constitutional: Reports as per HPI and Reports no additional constitutional complaints Eyes: Eyes: Reports as per HPI and Reports no additional eye complaints ENT: Reports system reviewed and no additional complaints, except as documented and Reports as per HPI Cardiovascular: Cardiovascular: Reports as per HPI and Reports no additional cardiovascular complaints Respiratory: Respiratory: Reports as per HPI and Reports no additional respiratory complaints Gastrointestinal: Gastrointestinal: Reports as per HPI and Reports no additional gastrointestinal complaints Genitourinary: Genitourinary: Reports no additional female genitourinary complaints and Reports as per HPI Musculoskeletal: Musculoskeletal: Reports no additional musculoskeletal complaints and Reports as per HPI Integumentary/Breasts: Skin/Breast: Reports system reviewed and no additional complaints, except as docu and Reports as per HPI Neurologic: Reports system reviewed an
[2024-01-28] MEDS: MECLIZINE HCL 25 MG TABLET PO ×3 (08:31→16:37)
[2024-01-28] MEDS: ASPIRIN 81 MG ENTERIC TABLET PO (08:31)
[2024-01-28] MEDS: ASCORBIC ACID 500 MG TABLET PO (08:31)
[2024-01-28 11:12] LABS: Cholesterol 164 mg/dL (0-200); HDL Direct 61 mg/dL; Triglycerides 52 mg/dL (<150)
[2024-01-28 11:23] LABS: LDL Cholesterol Direct 88 mg/dL
[2024-01-28 12:06] LABS: Fractional Inspired Oxygen 21 %; HCO3 VBG 23.5 mEq/l (24.0-30.0); PCO2 VBG 41.5 mmHg (42.0-48.0); pH VBG 7.371 (7.300-7.400)
[2024-01-28 12:08] LABS: Device ROOM AIR; PO2 VBG < 27.0 mmHg (35.0-45.0)
[2024-01-28] MEDS: ACETAMINOPHEN 325 MG TABLET 650 MG PO (20:03)
[2024-01-29] VITALS: PULSE 60
--- NOTE | 2024-01-29 | ECHO_ITS ---
Patient Info Name: Emperatriz Clark Age: 83 years : 1940 Gender: Female Ht: 66 in Wt: 164 lbs BSA: 1.88 m2 HR: 64 bpm BP: 111 / 59 mmHg Heart Rhythm: Sinus Rhythm Technical Quality: Good Exam Date: 01/29/2024 7:28 AM Exam Location: Echo Lab Patient Status: Outpatient Admit Date: 01/27/2024 Staff Ordering Physician: Karen Saravia APRN Architect In Training: Rimma Talbot RDCS Attending Provider: Marin Chapman MD Referring Physician: Manjit NEVAREZ; Exam Type: CA echo doppler color flow Study Info Indications R42 - Dizziness and giddiness - increased B/P, Murmur Complete two-dimensional, color flow and Doppler transthoracic echocardiogram is performed. Summary 1. Complete two-dimensional, color flow and Doppler transthoracic echocardiogram is performed. 2. Left ventricular hypertrophy with well-preserved systolic function. 3. Mild left atrial enlargement. 4. 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 5. Calcified mitral valve annual. Left Ventricle Left ventricular chamber dimension is normal. Left ventricular systolic function is normal, estimated at 60-65%. There is mild concentric increased left ventricular wall thickness. The left ventricular diastolic function is grade I diastolic dysfunction. Right Ventricle Right ventricular chamber dimension is normal. Left Atria Left atrial chamber dimension is mildly enlarged. Right Atria Right atrial chamber dimension is normal. Aortic Valve The aortic valve is trileaflet. There is moderate aortic valve sclerosis. There is mild aortic valve stenosis. There is no aortic valve regurgitation. Pulmonic Valve The pulmonic valve is normal. Mitral Valve The mitral valve has normal leaflets. The mitral valve annulus is severely calcified. Tricuspid Valve The tricuspid valve leaflets are normal. Pericardium/Pleural The pericardium appears normal. Aorta The aortic root size at the sinus of Valsalva is normal. Report Signatures
[2024-01-29 04:00] VITALS: PULSE 63
[2024-01-29 05:15] VITALS: BP 111/59; PULSE 64; RESP 17; TEMP 36.4; O2SAT 97
[2024-01-29 05:18] LABS: Basophils Percent Auto 0.8 % (0.2-1.2); Eosinophils Absolute Auto 0.2 K/mm3 (0-0.3); Hematocrit 41.9 % (37.0-47.0); Hemoglobin 14.2 g/dL (12.0-15.0); Immature Granulocyte Absolute 0.01 K/mm3 (0.00-0.031); Immature Granulocyte Percent A 0.2 % (0-0.5); Lymphocytes Absolute Auto 2.36 K/mm3 (0.9-3.2); Lymphocytes Percent Auto 48.9 % (18.3-44.2); Mean Corpuscular HGB Conc 33.9 g/dl (32-36); Mean Corpuscular Hemoglobin 31.1 pg (26-34); Mean Corpuscular Volume 91.9 fl (80-100); Mean Platelet Volume 10.1 fl (7.4-10.4); Monocytes Absolute Auto 0.4 K/mm3 (0.1-0.6); Monocytes Percent Auto 7.5 % (2.6-8.5); Neutrophils Absolute Auto 1.8 K/mm3 (1.3-6.7); Neutrophils Percent Auto 37.6 % (45.5-73.1); Platelet Count Result 205 k/mm3 (150-375); Red Blood Count 4.56 M/mm3 (4.2-5.4); Red Cell Distribution Width 13.9 % (11.5-14.5); White Blood Count 4.8 K/mm3 (4.5-10.0)
[2024-01-29 05:27] LABS: Alanine Aminotransferase 11 U/L (6-35); Albumin Level 3.5 g/dL (3.5-5.1); Alkaline Phosphatase 85 U/L (38-126); Anion Gap 0 mmol/L (4-12); Aspartate Amino Transferase 21 U/L (14-36); Bilirubin,Total 0.6 mg/dL (0.2-1.3); Blood Urea Nitrogen 10 mg/dL (7-17); Calcium 8.5 mg/dL (8.4-10.2); Carbon Dioxide 30 mmol/L (22-30); Chloride 100 mmol/L (98-107); Estimated CRCL calculation 51 ml/min; Estimated Glomerular Filt Rate > 60; Glucose 95 mg/dL (65-110); Potassium 3.6 mmol/L (3.4-5.0); Sodium 130 mmol/L (137-145)
[2024-01-29] MEDS: LEVOTHYROXINE SODIUM 75 MCG TABLET PO (06:16)
[2024-01-29 08:00] VITALS: PULSE 59
[2024-01-29] MEDS: ASCORBIC ACID 500 MG TABLET PO (08:35)
[2024-01-29] MEDS: MECLIZINE HCL 25 MG TABLET PO ×2 (08:35→12:55)
[2024-01-29] MEDS: ENOXAPARIN 40 MG/0.4 ML SYRINGE SUB-Q (08:35)
[2024-01-29] MEDS: ASPIRIN 81 MG ENTERIC TABLET PO (08:35)
[2024-01-29 08:38] VITALS: PULSE 76; O2SAT 97
[2024-01-29 12:00] VITALS: PULSE 80
--- NOTE | 2024-01-29 12:27 | PM.DS ---
DS: Admitting Diagnosis Discharge Date 01/29/24 Admitting Diagnosis Vertigo Elevated blood pressure reading Hypothyroidism DS: Discharge Diagnosis Discharge Diagnosis (1) Vertigo: Code(s): R42 - Dizziness and giddiness Status: Acute (2) Elevated blood pressure reading: Code(s): R03.0 - Elevated blood-pressure reading, without diagnosis of hypertension Status: Acute (3) Hypothyroidism: Code(s): E03.9 - Hypothyroidism, unspecified Status: Acute DS: Summary Hospital Course Reason for hospitalization: Vertigo Elevated blood pressure reading Hypothyroidism Hospital Course: 01/28/24: This is an 83-year-old female who presented to the hospital on 01/27/2024 with dizziness.? Workup in the hospital included head CT which was negative for any acute intracranial process only showed stable age-related changes.? Initial labs were essentially unremarkable, TSH was 2.010.? A UA was also performed which showed 1+ urine ketones, 2+ leukocytes, 6-10 urine RBC.? No urine culture was obtained.? EKG showed sinus rhythm with a rate of 63, QTC 408.? While in the ED she was found to have high blood pressure of 171/89 however denied history of hypertension.? She received meclizine and diazepam while in the ED. Nothing was given for blood pressure while in ER or overnight. On examination today patient is alert and oriented x3, lying in the bed.? Patient denies and fever, chills, headache, vision changes, nausea, vomiting, diarrhea, abdominal pain, chest pain, shortness of breath. Her neuro exam was negative. Patient endorses lightheadedness however no dizziness. Orthostatic blood pressures remained normal without significant drop.? Plan is for an MRI of the brain, Carotid doppler, echocardiogram, and PT evaluation today for vestibular training. 01/29/24: On examination today patient is alert oriented x3, sitting in the chair. She denies any new complaints today. Labs today shown a sodium level of 130 otherwise was unremarkable. Brain MRI was negative for any acute abnormality, moderate scattered periventricular predominant nonspecific white matter T2 hyperintensity which is within normal limits for age and chronic small-vessel ischemic disease. Patient is stable for discharge at this time. She will need to follow up with her primary care physician in 1 week. I did ask her to monitor her blood pressure and taking her blood pressure readings to her primary for further evaluation as she has had elevated blood pressures this admission. We did not start her on any blood pressure medication at this time as her blood pressures have normalized to her normal range. Final diagnosis: Vertigo Status at Discharge Cognitive/behavioral status at discharge: Alert and oriented x3 Functional status at discharge: independent ambulation Overall status at discharge: patient is progressing back to baseline Time Spent with Patient Time attestation: Total time spent providing and/or coordinating discharge services: Time spent: Greater than 30 minutes Exam Narrative: General: In no acute distress, well nourished Head: atraumatic, no encephalopathy Eyes: EOMI, PERRLA, sclera clear, denies visual changes ENT: moist mucous membranes, nasal passages clear Neck: supple, no JVD, no adenopathy, trachea midline Cardiac: Normal S1 and S2. RRR, Murmur noted. No gallops or friction rubs, peripheral pulses intact. Respiratory: Lungs clear to auscultation, no adventitious lung sounds, currently on room air Gastrointestinal: soft, non-distended, non-tender, normoactive bowel sounds. : voiding without difficulty. Extremities: moves all extremities well, mild ankle edema, good ROM, strength 5/5 in all 4 extremities Skin: clean, dry, intact. No wounds or lesions. Neuro: Alert and oriented x4, cranial nerves intact, no neuro deficits, facial features symmetrical, coordination intact Psych: normal mood, normal affect, interactive DS: Data Data Completed an
== END 2024-01-29 13:31 | disposition home or self-care (01) ==
LOC: ANHED 15:32 → ANH2MED 01-29 07:05
PROVIDERS: Nurse Practitioner Acute Care; Physician Assistant; Admitting Provider Internal Medicine; Emergency Provider Emergency Medicine; PCP Nurse Practitioner Family; Visit Provider Internal Medicine
DX: R42 Dizziness and giddiness (principal); R03.0 Elevated blood-pressure reading, without diagnosis of hypertension; I51.89 Other ill-defined heart diseases; I65.23 Occlusion and stenosis of bilateral carotid arteries; I35.0 Nonrheumatic aortic (valve) stenosis; E03.9 Hypothyroidism, unspecified; E55.9 Vitamin D deficiency, unspecified; M81.0 Age-related osteoporosis without current pathological fracture; E78.5 Hyperlipidemia, unspecified; Z79.82 Long term (current) use of aspirin
CPT/HCPCS: 36415; 70450; 70553; 80053; 80061; 81001; 82803; 84443; 85025; 85610; 85730; 93005; 93306; 93880; 95992; 96372; 96374; 97110; 97161; 97530; 99285; A9270; A9577; G0378; J1650; J3360

== ENCOUNTER 2024-02-05 08:39 | Outpatient (CLI) | payer MEDICARE, SELFPAY ==
--- NOTE | ~2024-02-05 | XR_ITS ---
EXAMINATION: XR ribs RT 2V DATE: 02/05/2024 09:41 INDICATION: Right rib pain. Fall. TECHNIQUE: A frontal view of the chest and 2 views on 3 radiographs of the right ribs were obtained. COMPARISON: Chest 2 views 05/05/2009 FINDINGS: There is stable mild scarring at the lung apices. There is no pneumonia, pleural effusion, or pneumothorax. The heart size is normal. There is an old healed fracture of right 11th rib. IMPRESSION: 1. No acute rib fracture. Reviewed, dictated and finalized at location A. IMPRESSION: 1. No acute rib fracture.
== END 2024-02-05 08:40 ==
DX: R07.81 Pleurodynia (principal)
CPT/HCPCS: 71100

== ENCOUNTER 2024-05-14 07:36 | Outpatient (CLI) | payer MEDICARE, SELFPAY ==
--- NOTE | ~2024-05-14 | DEXA_ITS ---
Bone Density Report Name: BRUNA LUJAN Age: 83 Sex: Female Ethnicity: White Date of : 1940 Indication: osteopenia; monitoring treatment; height loss; prior fracture; hysterectomy; Referring Provider: CHETNA, CELESTE Larios Study: Bone densitometry was performed. Exam Date: May 14, 2024 Accession number: [id number] Bone Density: Region BMD T-score Z-score Classification AP Spine(L1, L2, L3) 1.025 0.1 2.7 Normal Femoral Neck (Left) 0.593 -2.3 0.1 Osteopenia Total Hip (Left) 0.656 -2.3 -0.2 Osteopenia Femoral Neck (Right) 0.589 -2.3 0.0 Osteopenia Total Hip (Right) 0.714 -1.9 0.3 Osteopenia Total Hip Mean 0.685 -2.1 0.1 Osteopenia World Health Organization criteria for BMD impression classify patients as: Normal (T-score at or above -1.0), Osteopenia (T-score between -1.0 and -2.5), or Osteoporosis (T-score at or below -2.5). 10-year Fracture Risk: FRAX not reported because: Treated for osteoporosis Previous Exams: Region Exam Age BMD T-score BMD Change BMD Change Date g/cm2 vs Baseline vs Previous AP Spine (L1-L3) 05/14/2024 83 1.025 0.1 0.031 (3.1%)* 0.008 (0.8%) 03/03/2022 81 1.016 0.0 0.023 (2.3%) 0.014 (1.4%) 08/23/2018 78 1.002 -0.1 0.009 (0.9%) 0.007 (0.7%) 07/19/2016 75 0.995 -0.2 0.002 (0.2%) 0.002 (0.2%) 06/26/2014 73 0.994 -0.2 Total Hip(Left) 05/14/2024 83 0.656 -2.3 -0.034 (-5.0%) -0.005 (-0.8%) 03/03/2022 81 0.661 -2.3 -0.029 (-4.3%) -0.017 (-2.5%) 08/24/2020 80 0.678 -2.2 -0.013 (-1.8%) -0.043 (-6.0%) 08/23/2018 78 0.721 -1.8 0.031 (4.4%)* 0.027 (3.9%)* 07/19/2016 75 0.693 -2.0 0.003 (0.5%) 0.003 (0.5%) 06/26/2014 73 0.690 -2.1 Total Hip(Right) 05/14/2024 83 0.714 -1.9 -0.046 (-6.0%) -0.013 (-1.7%) 03/03/2022 81 0.727 -1.8 -0.033 (-4.4%) -0.016 (-2.2%) 08/24/2020 80 0.743 -1.6 -0.017 (-2.2%) -0.031 (-4.0%) 08/23/2018 78 0.774 -1.4 0.014 (1.8%) 0.034 (4.6%)* 07/19/2016 75 0.740 -1.7 -0.020 (-2.7%) -0.020 (-2.7%) 06/26/2014 73 0.760 -1.5 *Denotes significance at 95% confidence level, LSC for AP Spine = 0.022 g/cm2, LSC for Total Hip = 0.027 g/cm2 Clinical Information Provided by Patient: Has had a low trauma fracture Is being treated for osteoporosis Has used the following medications: Fosamax (i.e. alendronate), Vitamin D, Calcium Has the following medical conditions: Hysterectomy Patient maximum height was 67.5 Menopause Age: 30 No regu
== END 2024-05-14 07:37 | disposition home or self-care (01) ==
LOC: ANHIMG 07:38
DX: M85.852 Other specified disorders of bone density and structure, left thigh (principal); M85.851 Other specified disorders of bone density and structure, right thigh
CPT/HCPCS: 77080

== ENCOUNTER 2024-09-21 07:39 | Outpatient (CLI) | payer MEDICARE, SELFPAY ==
--- NOTE | ~2024-09-21 | MM_ITS ---
EXAMINATION: MM screening [facility] BI w eliud HISTORY: Screening TECHNIQUE: Craniocaudal and mediolateral oblique 3-D tomosynthesis images were obtained and synthetic 2-D images were generated. CAD analysis was submitted and interpreted. COMPARISON: 09/28/2022 and dating back to 08/23/2018 BREAST PARENCHYMAL COMPOSITION: There are scattered areas of fibroglandular density. FINDINGS: Bulky calcifications are detected bilaterally, stable and benign in appearance. Punctate calcifications detected bilaterally, stable and benign in appearance, vascular in origin. Stable parenchymal pattern without suspicious microcalcifications, architectural distortion, discrete masses or significant asymmetry. IMPRESSION: 1. No mammographic evidence of malignancy. 2. Recommend routine screening mammography in one year. BI-RADS Category 2: Benign finding(s). Reviewed, dictated and finalized at location A. TICE SPECIALIST
== END 2024-09-21 07:40 | disposition home or self-care (01) ==
LOC: ANHIMG 07:41
DX: Z12.31 Encounter for screening mammogram for malignant neoplasm of breast (principal)
CPT/HCPCS: 77063; 77067

== ENCOUNTER 2025-09-19 10:54 | Emergency (ER) | payer MEDICARE, SELFPAY ==
[2025-09-19 11:13] VITALS: BP 122/87; PULSE 72; RESP 16; TEMP 36.4; O2SAT 100
--- NOTE | 2025-09-19 11:14 | ECG_ITS ---
Test Date: 2025-09-19 11:27:25 Measurements Intervals [place] Rate: 68 P: 43 MO: 143 QRS: -3 QRSD: 88 T: 42 QT: 399 QTc: 427 Interpretive Statements SINUS RHYTHM POSSIBLE LEFT ATRIAL ENLARGEMENT VOLTAGE CRITERIA FOR LVH MINIMAL Q WAVES- HIGH LATERAL LEADS BASELINE WANDER- AVR, AVL ,AVF, V1, V6 BORDERLINE ECG No previous ECG available for comparison Electronically Signed On 09-19-2025 20:06:33 CLEAN ROOM TECHNICIAN by James Dotson D.O.
--- NOTE | 2025-09-19 11:27 | ED_ITS ---
HPI - Dizziness General Chief Complaint: Dizziness Stated Complaint: Dizzy dry heaving Time Seen by Provider: 09/19/25 11:15 Source: patient, RN notes reviewed and old records reviewed Mode of arrival: ambulatory Limitations: no limitations History of Present Illness HPI Narrative: 85-year-old female presents to the [facility] with complaints of dizziness, dry heaving since yesterday. States that she is having trouble walking, cannot lay flat. Only comfortable position is sitting straight up. Concerns that her ?crystals need alignment? also concern for dehydration. Onset (ago): day(s) (1) Related Data Home Medications ?Medication ?Instructions ?Recorded ?Confirmed ?Last Taken ?Type ascorbate calcium (vitamin C) 500 500 mg PO DAILY 02/2301/27/24 Unknown History mg tablet aspirin 81 mg tablet,delayed 81 mg PO DAILY 03/10/20 0 01/27/24 01/26/24 History release (Estuardo Low Dose Aspirin) ibandronate 150 mg tablet 150 mg PO MONTHLY 03/10/20 0 01/27/24 01/24/24 History levothyroxine 75 mcg capsule 75 mcg PO DAILY 03/10/20 01/27/24 01/26/24 History ergocalciferol (vitamin D2) 1,250 1,250 mcg PO WEEKLY 01/27/24 01/27/24 01/22/24 History mcg (50,000 unit) capsule Allergies Allergy/AdvReac Type Severity Reaction Status Date / Time No Known Allergies Allergy Verified 08/08/23 09:52 Review of Systems Review of Systems: All systems reviewed & are unremarkable except as noted in HPI and below Constitutional: Constitutional: Reports no additional constitutional complaints, Denies body ache(s), Denies fatigue and Denies fever(s) ENT: Reports system reviewed and no additional complaints, except as documented Cardiovascular: Cardiovascular: Reports no additional cardiovascular complaints, Denies chest pain and Denies dyspnea Respiratory: Respiratory: Reports no additional respiratory complaints, Denies chest congestion, Denies cough and Denies dyspnea Gastrointestinal: Gastrointestinal: Reports as per HPI and Reports nausea Musculoskeletal: Musculoskeletal: Reports no additional musculoskeletal complaints Integumentary/Breasts: Skin/Breast: Reports system reviewed and no additional complaints, except as docu Neurologic: Reports as per HPI, Reports dizziness, Denies loss of vision, Denies memory loss and Denies numbness PMFSH Past Medical History Medical History Psoriasis Hypothyroidism Hyperlipidemia Vitamin D deficiency Osteoporosis Surgical History Surgical History History of orthopedic surgery Left cubital tunnel release. History of hysterectomy History of knee surgery Open reduction internal fixation left patellar fracture status post hardware removal. Family History Family History Father Heart disease Mother Heart disease S/P triple vessel bypass Sibling Hypertension Unknown Heart disease Cerebrovascular accident Hypertension Social History Social History Social History: Surrogate medical decision maker: Kit and Trena Clark, children. Code status: Full code. Smoking status: Never smoker Alcohol intake: never Substance use: never Lack of Transportation: No Lack of Food: Never True Current Housing: I Have Housing Concerned About Future Housing: No Difficulty Paying Gas/Electric Bills: No Difficulty Paying for Meds: No Currently Unemployed: No Education: High School Diploma/GED Difficulty w/ Childcare or Family Care: No Living arrangements: alone Occupation/Education: retired Spiritual care concerns: No Comments At the time of my signature, I reviewed and agree with the nursing past medical, surgical, social, and family history. There is no relevant family history pertinent to the patient complaint. Exam Const: General: cooperative, no acute distress, well developed, alert, uncomfortable and well nourished Nutritional Appearance: well nourished Orientation/consciousness: patient oriented x3 Limitations: no limitations HENMT: Head: normal to inspection Ears: hearing grossly normal bilaterally, external ears normal, TM's normal bilaterally, EAC's normal, mastoids normal and no periauricular adenopathy Mouth: Yes Normal oral and palatal mucosa present, Yes lip normal, Yes tongue normal and Yes moist mucous membranes Eyes: General: appearance normal, both eyes and all related structures Alignment and Position: alignment normal Neck: Neck: normal visual inspection, full ROM, no lymphadenopathy and no meningeal signs Chest: Chest palpation & inspection: normal inspection of the chest Resp: Effort & Inspection: normal respiratory effort and able to speak in c omplete sentences Auscultation: clear to auscultation bilaterally, no crackles, no rales, no rhonchi and no wheezes Cardio: Rate: regular rate Skin: General skin exam: normal color and no rashes or lesions noted Neuro: General: patient oriented x3, No gait normal (Needs to hold on, feels like she is going to all), tone normal, moves all extremities and no meningeal signs Cranial nerves: Yes Normal facial strength present, Yes facial symmetry and Yes Midline tongue present Cognition (Neuro): normal cognition Speech: normal speech Gait exam (Neuro): Normal gait present Extrem: General: normal to inspection, full ROM, capillary refill normal and normal gait Psych: Appearance: grossly normal and well kempt Mental Status: mental status grossly normal Speech and movement: Normal speech and movement present and Clear speech present Affect: normal affect Attitude: cooperative Course Course Level of Care: Express Care Visit Vital Signs Vital signs: Vital Signs Temperature 97.5 F L 09/19/25 11:13 Pulse Rate 72 09/19/25 11:13 Respiratory Rate 16 09/19/25 11:13 Blood Pressure 122/87 09/19/25 11:13 Pulse Oximetry 100 09/19/25 11:13 Temperature 97.5 F L 09/19/25 11:13 Pulse Rate 72 09/19/25 11:13 Respiratory Rate 16 09/19/25 11:13 Blood Pressure 122/87 09/19/25 11:13 Pulse Oximetry 100 09/19/25 11:13 reviewed Transfer Transfered to: [place] Transportation: Other (Declined EMS. States family member will take her. Family member agreed) Transfer rationale: Patient with significant dizziness, trouble walking, cannot lay flat. History of similar. Also concern for dehydration Accepting physician: Spoke with Dr. Ubaldo Craig [facility] Narrative Medical decision making narrative: Due to patient's age, concerns for dizziness, unable to lay flat, difficulty with walking sending for higher level of care. Patient states that she is concerned she might be dehydrated. Unable to do IV fluids. Patient declined EMS Transfer instructions reviewed with patient and her family member to go directly to the ER. EMS was offered, both declined All questions have been answered, and the patient deny any further questions. Some parts of this dictation were generated by voice recognition software and may contain typographical and/or grammatical inaccuracies. Differential Diagnosis Differential Diagnosis: Differential diagnostic considerations for dizziness include dehydration, adverse reaction to drug, benign paroxysmal positional vertigo, orthostatic hypotension, vertebral basilar insufficiency, cerebrovascular accident, acute vestibular neuronitis, transient cerebral ischemia.?? ECG Data EKG #1: Attestation: I personally reviewed and interpreted this ECG as follows: ECG completion date: 09/19/25 ECG completion time: 11:27 Prior ECG tracings: available for review Interpretation: Sinus rhythm. No ST elevation or depression noted. Ventricle rate of 68, [place] interval 143, QRS duration 88. Discharge Plan Discharge Clinical Impression: Dizziness Patient Disposition: Acute Care Hospital Condition: Stable Patient Language: Sinhala Prescriptions: No Action levothyroxine 75 mcg capsule 75 mcg PO DAILY aspirin [Estuardo Low Dose Aspirin] 81 mg tablet,delayed release (DR/EC) 81 mg PO DAILY ibandronate 150 mg tablet 150 mg PO MONTHLY ascorbate calcium (vitamin C) 500 mg tablet 500 mg PO DAILY Patient Comments: Patient states they only take in the winter. ondansetron 4 mg tablet,disintegrating 4 mg PO Q8H PRN (Reason: nausea and vomiting) Qty: 10 0RF Patient Comments: New this admission ergocalciferol (vitamin D2) 1,250 mcg (50,000 unit) capsule 1,250 mcg PO WEEKLY Rx Instructions: Patient takes on Mondays meclizine 25 mg Tablet 25 mg PO TID Qty: 90 0RF Follow-up/Referrals: August,Tere Larios, [facility] [Primary Care Provider, Unknown]
== END 2025-09-19 11:35 | disposition short-term general hospital (02) ==
PROVIDERS: Emergency Provider Nurse Practitioner
DX: R42 Dizziness and giddiness (principal); E03.9 Hypothyroidism, unspecified; E78.5 Hyperlipidemia, unspecified; E55.9 Vitamin D deficiency, unspecified; M81.0 Age-related osteoporosis without current pathological fracture; L40.9 Psoriasis, unspecified
CPT/HCPCS: 93005; 99213; G0463

== ENCOUNTER 2025-09-19 12:34 | Emergency (ER) | payer MEDICARE, SELFPAY ==
[2025-09-19] VITALS (7 sets, daily range): BP systolic 142–177; BP diastolic 70–101; PULSE 70–85; RESP 16; TEMP 36.3; O2SAT 99–100
--- NOTE | ~2025-09-19 | CT_ITS ---
CT HEAD NON-CONTRAST Clinical History: dizziness, nausea vomiting Comparison: 01/27/2024 Technique: Unenhanced axial images skull base to vertex Coronal, sagittal reformats CT images acquired with automatic exposure control for dose reduction DLP: 605 mGy-cm Findings: Age-related atrophy. Chronic white matter microvascular ischemic changes. Sulci, ventricles: Unremarkable. No intracerebral hemorrhage. No evidence acute territorial infarct. No mass effect, midline shift. Bony calvarium intact. Visualized paranasal sinuses: Clear. Mastoid air cells: Clear. IMPRESSION: 1. No acute intracranial findings. Reviewed, dictated and finalized at location R. OR [employer]
--- NOTE | 2025-09-19 12:57 | ED_ITS ---
HPI - Dizziness General Chief Complaint: Dizziness <Shasta Covarrubias ACCESS CLERK - Last Filed: 09/19/25 13:00> Stated Complaint: dizziness <Shasta Covarrubias APRN - Last Filed: 09/19/25 13:00> Time Seen by Provider: 09/19/25 12:57 <Shasta Covarrubias ACCESS CLERK - Last Filed: 09/19/25 13:00> Focused HPI: Patient is an 85-year-old female who presents to the ER with dizziness, nausea/vomiting. She reports her symptoms started approximately 24 hours ago. Patient presents from urgent care and she voiced concerns of dehydration at that facility. At time of examination patient denies any visual changes or headache. She endorses a history of vertigo and reports last time they did that maneuver on me and I basically ran out of the hospital afterwards. I need that again. GENERAL: Well-appearing, well-nourished, and in no acute distress. HEAD: Normocephalic, atraumatic. CHEST: Clear to auscultation. ?No respiratory distress. HEART: Regular rate and rhythm.? NEURO: ?Alert and oriented x3. Patient screened in triage and initial orders placed.? ?Additional care and disposition to be based upon?diagnostic testing and treatment. <Shasta Covarrubias APRN - Last Filed: 09/19/25 13:00> History of Present Illness HPI Narrative: Agree with HPI. Patient and family state that this is how she felt previously when she had these symptoms and had a maneuver done that fixed her dizziness. <Mani Moy DO - Last Filed: 09/19/25 20:51> Related Data Home Medications: Home Medications ?Medication ?Instructions ?Recorded ?Confirmed ?Last Taken ?Type ascorbate calcium (vitamin C) 500 500 mg PO DAILY 02/2309/19/25 Unknown History mg tablet aspirin 81 mg tablet,delayed 81 mg PO DAILY 03/10/20 1 11/20/24 01/26/24 History release (Estuardo Low Dose Aspirin) ibandronate 150 mg tablet 150 mg PO MONTHLY 03/10/20 1 11/20/24 01/24/24 History levothyroxine 75 mcg capsule 75 mcg PO DAILY 03/10/20 09/19/25 01/26/24 History ergocalciferol (vitamin D2) 1,250 1,250 mcg PO WEEKLY 01/27/24 09/19/25 01/22/24 History mcg (50,000 unit) capsule <Shasta Covarrubias APRN - Last Filed: 09/19/25 13:00> Allergies/Adverse Reactions: Allergies Allergy/AdvReac Type Severity Reaction Status Date / Time No Known Allergies Allergy Verified 09/19/25 12:36 <Shasta Covarrubias APRN - Last Filed: 09/19/25 13:00> Review of Systems 2 Review of Systems: All systems reviewed & are unremarkable except as noted in HPI and below <Mani Moy DO - Last Filed: 09/19/25 20:51> [facility] Past Medical History Medical History: Medical History Psoriasis Hypothyroidism Hyperlipidemia Vitamin D deficiency Osteoporosis <Shasta Covarrubias APRN - Last Filed: 09/19/25 13:00> Surgical History Surgical History: Surgical History History of orthopedic surgery Left cubital tunnel release. History of hysterectomy History of knee surgery Open reduction internal fixation left patellar fracture status post hardware removal. <Shasta Covarrubias APRN - Last Filed: 09/19/25 13:00> Family History Family History: Family History Father Heart disease Mother Heart disease S/P triple vessel bypass Sibling Hypertension Unknown Heart disease Cerebrovascular accident Hypertension <Shasta Covarrubias APRN - Last Filed: 09/19/25 13:00> Social History Social History: Social History Social History: Surrogate medical decision maker: Kit and Trena Clark, children. Code status: Full code. Smoking status: Never smoker Alcohol intake: never Substance use: never Lack of Transportation: No Lack of Food: Never True Current Housing: I Have Housing Concerned About Future Housing: No Difficulty Paying Gas/Electric Bills: No Difficulty Paying for Meds: No Currently Unemployed: No Education: High School Diploma/GED Difficulty w/ Childcare or Family Care: No Living arrangements: alone Occupation/Education: retired Spiritual care concerns: No <Shasta Covarrubias, ACCESS CLERK - Last Filed: 09/19/25 13:00> Exam 2 Narrative: APPEARANCE: No acute distress, nontoxic, resting in bed EYES: EOMI, rightward beating nystagmus HEENT: Normocephalic, atraumatic, OMM RESPIRATORY: No respiratory distress Clear to auscultation bilaterally with no rhonchi wheezing or rales. CARDIOVASCULAR: Regular rate and rhythm without murmurs rubs or gallops. ABDOMINAL: Soft, nontender, nondistended, no rebound or guarding MUSCULOSKELETAl: Moves all extremities. No clubbing, cyanosis or edema. NEURO: Awake and alert. Following commands, speech normal, no focal deficits SKIN:: Warm, dry. No rashes lesions or abrasions PSYCHIATRIC: Normal affect/mood, <Mani Moy DO - Last Filed: 09/19/25 20:51> Course Vital Signs Vital signs: Vital Signs Temperature 97.4 F L 09/19/25 12:48 Pulse Rate 82 09/19/25 12:48 Respiratory Rate 16 09/19/25 12:48 Blood Pressure 159/71 H 09/19/25 12:48 Pulse Oximetry 99 09/19/25 12:48 Oxygen Delivery Room Air 09/19/25 12:48 Temperature 97.4 F L 09/19/25 12:48 Pulse Rate 77 09/19/25 19:35 Respiratory Rate 16 09/19/25 19:35 Blood Pressure 142/78 H 09/19/25 19:35 Pulse Oximetry 99 09/19/25 19:35 Oxygen Delivery Room Air 09/19/25 12:48 <Shasta Covarrubias, ACCESS CLERK - Last Filed: 09/19/25 13:00> Vital Signs Temperature 97.4 F L 09/19/25 12:48 Pulse Rate 82 09/19/25 12:48 Respiratory Rate 16 09/19/25 12:48 Blood Pressure 159/71 H 09/19/25 12:48 Pulse Oximetry 99 09/19/25 12:48 Oxygen Delivery Room Air 09/19/25 12:48 Temperature 97.4 F L 09/19/25 12:48 Pulse Rate 77 09/19/25 19:35 Respiratory Rate 16 09/19/25 19:35 Blood Pressure 142/78 H 09/19/25 19:35 Pulse Oximetry 99 09/19/25 19:35 Oxygen Delivery Room Air 09/19/25 12:48 <Mani Moy DO - Last Filed: 09/19/25 20:51> [facility] Narrative Medical decision making narrative: 85-year-old female Presenting for dizziness On initial evaluation patient was in no acute distress afebrile, hemodynamic stable. Differentials include but are not limited to: BPPV, orthostatic hypotension, CVA, electrolyte abnormality, viral syndrome Notable exam findings: Mild rightward beating nystagmus, dizziness with for right rotation of the head I personally reviewed the patient's lab result. Notable lab findings: CBC without significant abnormalities. Hyponatremic to 133, hypokalemia to 3.1. CT head showed no acute process. Patient was given meclizine and subsequently Valium with minimal relief. Catalina maneuver was performed and patient was able to ambulate throughout the department with minimal assistance. Patient was feeling much better at this time. Patient was deemed appropriate for discharge at this time. Patient was given a prescription for meclizine. Patient was advised follow-up with their PCP in the next week for re-evaluation. Patient was agreeable to this plan. Given strict return precautions. <DO Feli Goddard Last Filed: 09/19/25 20:51> Differential Diagnosis Differential Diagnosis: BPPV, orthostatic hypotension, CVA, electrolyte abnormality, viral syndrome <Mani Moy DO - Last Filed: 09/19/25 20:51> Lab Data Result diagrams: 09/19/25 16:07 09/19/25 16:07 <Shasta Covarrubias, ACCESS CLERK - Last Filed: 09/19/25 13:00> Labs: Lab Results 09/19/25 Range/Units 16:07 WBC 5.3 (4.5-10.0) K/mm3 RBC 4.82 (4.2-5.4) M/mm3 Hgb 15.0 (12.0-15.0) g/dL Hct 43.9 (37.0-47.0) % MCV 91.1 (80-100) fl MCH 31.1 (26-34) pg MCHC 34.2 (32-36) g/dl RDW 13.5 (11.5-14.5) % Plt Count 233 (150-375) k/mm3 MPV 9.3 (7.4-10.4) fl Immature Gran % (Auto) 0.2 (0-0.5) % Neut % (Auto) 59.7 (45.5-73.1) % Lymph % (Auto) 30.1 (18.3-44.2) % [place] % (Auto) 7.3 (2.6-8.5) % Eos % (Auto) 1.9 (0-4.4) % Baso % (Auto) 0.8 (0.2-1.2) % Lymph # (Auto) 1.60 (0.9-3.2) K/mm3 [place] # (Auto) 0.4 (0.1-0.6) K/mm3 Eos # (Auto) 0.1 (0-0.3) K/mm3 Baso # (Auto) 0.0 (0.0-0.1) K/mm3 Abs Immat Gran (auto) 0.01 (0.00-0.031) K/mm3 Absolute Neuts (auto) 3.2 (1.3-6.7) K/mm3 Absolute Nucleated RBC 0.000 (0.0-0.012) K/mm3 Nucleated RBC % 0.0 (0.0-0.2) % Sodium 133 L (137-145) mmol/L Potassium 3.1 L (3.4-5.0) mmol/L Chloride 100 (98-107) mmol/L Carbon Dioxide 28 (22-30) mmol/L Anion Gap 5 (4-12) mmol/L BUN 9 (7-17) mg/dL Creatinine 0.67 L (0.7-1.0) mg/dL Estim Creat Clear Calc 53 ml/min Estimated GFR > 60 (59 - ) Glucose 124 H (65-110) mg/dL Calcium 9.8 (8.4-10.2) mg/dL Total Bilirubin 0.8 (0.2-1.3) mg/dL AST 30 (14-36) U/L ALT 25 (6-35) U/L Alkaline Phosphatase 79 (38-126) U/L Total Protein 7.4 (6.3-8.2) g/dL Albumin 4.3 (3.5-5.1) g/dL <Shasta MelaraTeresita Covarrubias, ACCESS CLERK - Last Filed: 09/19/25 13:00> Lab Results 09/19/25 Range/Units 16:07 WBC 5.3 (4.5-10.0) K/mm3 RBC 4.82 (4.2-5.4) M/mm3 Hgb 15.0 (12.0-15.0) g/dL Hct 43.9 (37.0-47.0) % MCV 91.1 (80-100) fl MCH 31.1 (26-34) pg MCHC 34.2 (32-36) g/dl RDW 13.5 (11.5-14.5) % Plt Count 233 (150-375) k/mm3 MPV 9.3 (7.4-10.4) fl Immature Gran % (Auto) 0.2 (0-0.5) % Neut % (Auto) 59.7 (45.5-73.1) % Lymph % (Auto) 30.1 (18.3-44.2) % [place] % (Auto) 7.3 (2.6-8.5) % Eos % (Auto) 1.9 (0-4.4) % Baso % (Auto) 0.8 (0.2-1.2) % Lymph # (Auto) 1.60 (0.9-3.2) K/mm3 [place] # (Auto) 0.4 (0.1-0.6) K/mm3 Eos # (Auto) 0.1 (0-0.3) K/mm3 Baso # (Auto) 0.0 (0.0-0.1) K/mm3 Abs Immat Gran (auto) 0.01 (0.00-0.031) K/mm3 Absolute Neuts (auto) 3.2 (1.3-6.7) K/mm3 Absolute Nucleated RBC 0.000 (0.0-0.012) K/mm3 Nucleated RBC % 0.0 (0.0-0.2) % Sodium 133 L (137-145) mmol/L Potassium 3.1 L (3.4-5.0) mmol/L Chloride 100 (98-107) mmol/L Carbon Dioxide 28 (22-30) mmol/L Anion Gap 5 (4-12) mmol/L BUN 9 (7-17) mg/dL Creatinine 0.67 L (0.7-1.0) mg/dL Estim Creat Clear Calc 53 ml/min Estimated GFR > 60 (59 - ) Glucose 124 H (65-110) mg/dL Calcium 9.8 (8.4-10.2) mg/dL Total Bilirubin 0.8 (0.2-1.3) mg/dL AST 30 (14-36) U/L ALT 25 (6-35) U/L Alkaline Phosphatase 79 (38-126) U/L Total Protein 7.4 (6.3-8.2) g/dL Albumin 4.3 (3.5-5.1) g/dL <Mani Moy DO - Last Filed: 09/19/25 20:51> Imaging Data Radiologist's impression: ITS Impressions Head CT 09/19/25 13:06 IMPRESSION: 1. No acute intracranial findings. <Shasta Covarrubias APRN - Last Filed: 09/19/25 13:00> ITS Impressions Head CT 09/19/25 13:06 IMPRESSION: 1. No acute intracranial findings. <Mani Moy DO - Last Filed: 09/19/25 20:51> Discharge Plan Discharge Clinical Impression: Benign paroxysmal positional vertigo <Shasta Covarrubias APRN - Last Filed: 09/19/25 13:00> Patient Disposition: Home <Shasta Covarrubias APRN - Last Filed: 09/19/25 13:00> Condition: Stable <Shasta Covarrubias APRN - Last Filed: 09/19/25 13:00> Instructions: Antibiotic Form, Benign Paroxysmal Positional Vertigo (ED) <Shasta Covarrubias APRN - Last Filed: 09/19/25 13:00> Additional Instructions: You likely have benign paroxysmal positional vertigo. I did try the Catalina maneuver which did improve his symptoms significantly. Your given a prescription for meclizine, take this as prescribed. Follow-up with your PCP in the next week for re-evaluation. Return to the ED for any new worsening symptoms. <Shasta Covarrubias APRN - Last Filed: 09/19/25 13:00> Patient Language: Mohawk <Shasta Covarrubias APRN - Last Filed: 09/19/25 13:00> Prescriptions: New meclizine 25 mg tablet 25 mg PO BID PRN (Reason: dizziness) Qty: 30 0RF No Action levothyroxine 75 mcg capsule 75 mcg PO DAILY aspirin [Estuardo Low Dose Aspirin] 81 mg tablet,delayed release (DR/EC) 81 mg PO DAILY ibandronate 150 mg tablet 150 mg PO MONTHLY ascorbate calcium (vitamin C) 500 mg tablet 500 mg PO DAILY Patient Comments: Patient states they only take in the winter. ondansetron 4 mg tablet,disintegrating 4 mg PO Q8H PRN (Reason: nausea and vomiting) Qty: 10 0RF Patient Comments: New this admission ergocalciferol (vitamin D2) 1,250 mcg (50,000 unit) capsule 1,250 mcg PO WEEKLY Rx Instructions: Patient takes on Mondays meclizine 25 mg Tablet 25 mg PO TID Qty: 90 0RF <Shasta Covarrubias APRN - Last Filed: 09/19/25 13:00> Follow-up/Referrals: August,Tere Larios APRN [Primary Care Provider, Unknown] <Shasta Covarrubias APRN - Last Filed: 09/19/25 13:00>
--- OUTSIDE RECORDS SUMMARY | 2025-09-19 12:57 | XMS_ITS | Continuity of Care Document ---
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 Plan of Treatment Reminders Order Date Submit Date Provider Last Modified By Organization Details Last Modified Time Details Appointments Medicare Wellness 30 2025 09:00A ANDREW Tejeda Not available Not available Not available Lab None recorded. Referral None recorded. Procedures None recorded. Surgeries None recorded. Imaging None recorded. Medication Orders None recorded. Patient TargetsNo targets recorded. Patient InstructionsNo instructions recorded. Reason for Referral None Reported. Results Created Date Observation Date Name Description Value Unit Range Abnormal Flag Note LastModifiedBy Organization Detail LastModifiedTime Result Notes None recorded. Problems Name Problem SNOMED Code Status Onset Date Resolution Date Notes Provider Name and Address Organization Details Recorded Time Acute sinusitis 88223211 Completed Not Available [facility] 3 00:49:49 Spasm of back muscles 910622261 Active Not Available [facility] 3 00:49:49 Vitamin D deficienc y 52289867 Active Not Available [facility] 3 00:49:49 Hypothyro idism 20013107 Active Not Available [facility] 3 00:49:50 Cough 37949922 Completed Not Available [facility] 3 00:49:50 Hyperlipi demia 72125683 Active Not Available [facility] 3 00:49:50 Congestio n of nasal sinus 69466312 Completed Not Available [facility] 3 00:49:50 Psoriasis 7590275 Active Not Available [facility] 3 00:49:51 Hearing loss 69220784 Active 2017 Not Available [facility] 3 00:49:49 Muscle strain 03369183 Completed 201802/05/2024 ANDREW Balderas [address], [place], [address] , [employer] [facility] 4 08:43:28 Paresthes ia of upper limb 44374864 Active 2018 Not Available [facility] 3 00:49:51 Pain in left knee Active 2018 Not Available [facility] 3 00:49:49 Osteopeni a 695058240 Active 2019 Not Available [facility] 3 00:49:49 Screening mammograp hy of bilateral breasts Active 2020 Not Available [facility] 3 00:49:50 Elevated blood-pre ssure reading without diagnosis of hypertens ion 080203753 Active 2020 Not Available [facility] 3 00:49:50 Chronic low back pain 084110102 Active 2020 Not Available [facility] 3 00:49:49 Scoliosis deformity of spine 283915325 Active 2020 Not Available [facility] 3 00:49:49 Low back pain 680434881 Active 2020 Not Available [facility] 3 00:49:49 Vertigo 400161653 Active 2021 Not Available [facility] 3 00:49:50 Osteoarth ritis 813136457 Active 2021 Not Available [facility] 3 00:49:50 Weight loss 07160625 Active 2021 Not Available [facility] 3 00:49:51 Pain of right hip joint 04954541590 9102 Active 2022 Julieta Carrizales, ABNER [address], [place], [address] , [place] [employer] 3 09:17:02 Excess skin of eyelid 055790907 Active 2022 Julieta Carrizales NP [address] [facility] [address], [place], [address] , [employer] 3 09:18:44 Benign paroxysma l positiona l vertigo 022303923 Active 2023 ANDREW Balderas [address], [address] [address], [place], [address] , [employer] 4 10:22:38 Psoriasis of scalp 625207816 Active 2023 ANDREW Balderas [address], [place] [address], [place], [address] , [employer] 4 09:45:40 Loss of hair 994158401 Active 2023 ANDREW Balderas [address], [address] [address], [place], [address] , [employer] 4 09:45:56 Problem Notes None recorded. Procedures Surgical History Date Name Laterality Status Provider Name and Address Organization Details Recorded Time 08/13/20 24 Medicare Wellness CPT Code, subsequent completed ANDREW Balderas [address], [address] [address], [place], [address], [employer] 08/13/2024 10:15:35 09/28/19 23 Most Recent Mammogram completed Not Available [facility] 11/23/2022 00:44:15 03/03/20 22 Most Recent Bone Density completed Not Available [facility] 11/23/2022 00:44:15 09/25/18 70 Hysterectomy completed Not Available [facility] 023 00:44:19 decompression of ulnar nerve completed Not Available [facility] 11/23/2022 00:44:19 Knee Surgery completed Not Available [facility] 11/23/2022 00:44:19 Imaging Results None recorded. Procedure Notes None recorded. Medical Equipment None Reported. Allergies No known drug allergies Medications Name Sig Start Date Stop Date Status Note LastModified by Organization Details LastModified Time cyclobenzap rine 10 mg tablet TAKE 1 TABLET BY MOUTH EVERY 12 HOURS NEEDED FOR PAIN 01/12 completed Not Available Not Available Not Available prednisone 10 mg tablet Take 1 tablet every day by oral route as directed for 7 days. active Not Available Not Available No t Available azithromyci n 250 mg tablet TAKE 2 TABLETS (500 MG) BY ORAL ROUTE ONCE DAILY FOR 1 DAY THEN 1 TABLET (250 MG) BY ORAL ROUTE ONCE DAILY FOR 4 DAYS 12/14 completed Not Available Not Available Not Available benzonatate 200 mg capsule Take 1 capsule every 8 hours by oral route as needed for 7 days. active Not Available Not Available No t Available prednisone 20 mg tablet Take 1 tablet every day by oral route for 5 days. active Not Available Not Available No t Available Synthroid 100 mcg tablet Take 1 tablet every day by oral route. 2012 active Not Available Not Available Not Avai lable penicillin V potassium 500 mg tablet TK 1 T PO Q 6 H TAT 05/31 completed Not Available Not Available Not Available triamcinolo ne acetonide 0.5 % topical ointment APPLY THIN LAYER TOPICALLY TO THE AFFECTED AREA TWICE DAILY FOR 5 TO 7 DAYS 01/12 completed Not Available Not Available Not Available tramadol 50 mg tablet Take 1 tablet every 8 hours by oral route as needed for 10 days. active Not Available Not Available No t Available triamcinolo ne acetonide 0.1 % topical cream APPLY A THIN LAYER TO THE AFFECTED AREA(S) BY TOPICAL ROUTE 2 TIMES PER DAY active Not Available Not Available No t Available ketorolac 30 mg/mL (1 mL) injection solution Inject 1 mL as needed by intramusc ular route for 1 day. 01/11 completed Not Available Not Available Not Available levothyroxi ne 75 mcg tablet TAKE 1 TABLET BY MOUTH EVERY DAY active Not Available Not Available No t Available meclizine 25 mg tablet TAKE 1 TABLET BY MOUTH THREE TIMES DAILY 07/29 completed Not Available Not Available Not Available benzonatate 100 mg capsule Take 1 capsule every 4-6 hours by oral route as directed for 15 days. active Not Available Not Available No t Available gabapentin 300 mg capsule TAKE 1 CAPSULE BY MOUTH TWICE DAILY active Not Available Not Available No t Available aspirin 81 mg chewable tablet Chew 1 tablet every day by oral route. 2012 active Not Available Not Available Not Avai lable diclofenac sodium 75 mg tablet,manolo yed release Take 1 tablet every 12 hours by oral route as needed for 30 days. 01/12 completed Take with food, as neede d. Not Available Not Available Not Available montelukast 10 mg tablet TAKE 1 TABLET BY MOUTH EVERY DAY 06/20 completed Not Available Not Available Not Available ergocalcife rol (vitamin D2) 1,250 mcg (50,000 unit) capsule TAKE 1 CAPSULE BY MOUTH WEEKLY 2024 active Not Available Not Available Not Avai lable ibuprofen 600 mg tablet TAKE 1 TABLET BY MOUTH THREE TIMES DAILY NEEDED 05/31 completed Not Available Not Available Not Available methylpredn isolone 4 mg tablets in a dose pack FPD 06/19 completed Not Available Not Available Not Available ondansetron 4 mg disintegrat ing tablet DISSOLVE 1 TABLET ON THE TONGUE EVERY 8 HOURS NEEDED FOR NAUSEA OR VOMITING 07/18 completed Not Available Not Available Not Available fluticasone propionate 50 mcg/actuati on nasal spray,suspe nsion INL 2 SPRAYS IEN QAM 06/20 completed Not Available Not Available Not Available loratadine 10 mg tablet TK 1 T PO QAM FOR 30 DAYS 06/20 completed Not Available Not Available Not Available cyclobenzap rine 5 mg tablet TAKE 1 TABLET BY MOUTH THREE TIMES DAILY FOR 5 DAYS NEEDED 07/29 completed Not Available Not Available Not Available clobetasol 0.05 % shampoo APPLY A THIN LAYER BY TOPICAL ROUTE ONCE DAILY TO DRY SCALP LEAVE IN PLACE 15 MIN. THEN LATHER AND RINSE. 2023 active Not Available Not Available Not Avai lable ibandronate 150 mg tablet TAKE 1 TABLET BY MOUTH EVERY MONTH 2024 active Not Available Not Available Not Avai lable Lyrica 50 mg capsule TK ONE C PO TID 05/31 completed Not Available Not Available Not Available Calcium 500 + D 1 tablet daily 2012 active Not Available Not Available Not Avai lable carisoprodo l 250 mg tablet Take 1 tablet 3 times a day by oral route as directed for 30 days. active Not Available Not Available No t Available Actonel 150 mg tablet TAKE 1 TABLET BY MOUTH FOR 90 DAYS 06/20 completed Not Available Not Available Not Available Prevnar 13 (PF) 0.5 mL intramuscul ar syringe ADM 0.5ML IM UTD 06/05 completed Not Available Not Available Not Available Suprep Bowel Prep Kit 17.5 gram-3.13 gram-1.6 gram oral solution active Not Available Not Available Not Available Shingrix (PF) 50 mcg/0.5 mL intramuscul ar suspension, kit ADM 0.5ML IM UTD 07/07 completed Not Available Not Available Not Available Vitals None Recorded Social History Question Answer Notes LastModified by Organizat ion Details LastModified Time Tobacco Smoking Status Never Smoker Not Available [facility] 11/23/2022 00:43:20 Do You Have An Advance Directive? No MIGRATION.[id number] Information not available 11/23/2022 Are You Blind Or Do You Have Difficulty Seeing? No MIGRATION.78328 99206 Information not available 11/23/2022 Is Blood Transfusion Acceptable In An Emergency? Yes Information not available 01/12/2023 What Is Your Level Of Caffeine Consumption? Moderate MIGRATION.[id number] [id number] Information not available 11/23/2022 How Much Tobacco Do You Chew? None MIGRATION.84142 96472 Information not available 11/23/2022 What Is Your Code Status? Full Code Does Not Want To Be Kept Alive If Brain Information not available 01/12/2023 In The 14 Days Before Symptom Onset, Have You Had Close Contact With A Laboratory-confi rmed COVID-19 While That Case Was Ill? No MIGRATION.41758 94879 Information not available 11/23/2022 In The 14 Days Before Symptom Onset, Have You Had Close Contact With A Person Who Is Under Investigation For COVID-19 While That Person Was Ill? No MIGRATION.32263 17326 Information not available 11/23/2022 Are You Deaf Or Do You Have Serious Difficulty Hearing? Yes Hearing Aides Dont Use MIGRATION.00516 31042 Information not available 11/23/2022 What Type Of Diet Are You Following? REGULAR MIGRATION.07141 40069 Information not available 11/23/2022 Which Illicit Or Recreational Drugs Have You Used? None MIGRATION.19696 21055 Information not available 11/23/2022 Have There Been Any Changes To Your Family Or Social Situation? No MIGRATION.20383 82670 Information not available 11/23/2022 Do You Use Insect Repellent Routinely? Yes MIGRATION.18206 54549 Information not available 11/23/2022 [facility] Information not available 07/18/2023 Advance Directive- Providers Has Reviewed Directive And Consents To Follow Them (insert Provider Name With Any Objectives In Notes Field) No Says Her Kids Will Do It Information not available 08/13/2024 Presence Of Domestic Violence No Information not available 08/13/2024 Guns Present In The Home? No Information not available 08/13/2024 Are You Able To Care For Yourself? Yes Information not available 08/13/2024 Are You Blind Or Do Yo Have Difficulty Seeing? Yes Information not available 08/13/2024 Are You Deaf Or Do You Have Serious Difficulty Hearing? Yes Information not available 08/13/2024 General Stress Level? Low Information not available 08/13/2024 Live Alone Of With Others? Alone Information not available 08/13/2024 Do You Have A Medical Power Of Railroad Conductor? No Information not available 01/12/2023 What Was The Date Of Your Most Recent Tobacco Screening? 07/14/2022 MIGRATION.35292 76479 Information not available 11/23/2022 Do You Have Any Pets? No MIGRATION.68661 37859 Information not available 11/23/2022 What Is Your Relationship Status? MIGRATION.19853 10045 Information not available 11/23/2022 Do You Use Your Seat Belt Or Car Seat Routinely? Yes MIGRATION.72099 55005 Information not available 11/23/2022 Do You Have Smoke And Carbon Monoxide Detectors In Your Home? Yes MIGRATION.94510 13891 Information not available 11/23/2022 Are There Any Smokers In Your House? No MIGRATION.16164 68292 Information not available 11/23/2022 Do You Participate In Social Media? No MIGRATION.08101 72769 Information not available 11/23/2022 Do You Use Sunscreen Routinely? Yes MIGRATION.66755 01921 Information not available 11/23/2022 Has Tobacco Cessation Counseling Been Provided? No MIGRATION.18205 21962 Information not available 11/23/2022 Have You Recently Traveled Abroad? No MIGRATION.59275 13784 Information not available 11/23/2022 Do You Have Difficulty Walking Or Climbing Stairs? Yes Information not available 02/05/2024 Are You Currently In School? No Information not available 02/05/2024 Do You Have Any Dietary Restrictions? No MIGRATION.15654 51529 Information not available 11/23/2022 Sex: Female Functional Status Question Answer Note LastModified by [employer] ion Details LastModified Time Do you use any illicit or recreational drugs? No MIGRATION.62228 70615 Information not available 11/23/2022 What is your level of alcohol consumption? None MIGRATION.50785 76768 Information not available 11/23/2022 Do you or have you ever used smokeless tobacco? Never used smokeless tobacco MIGRATION.94824 56781 Information not available 11/23/2022 Are you currently employed? No Information not available 02/05/2024 Do you have transportation difficulties? No MIGRATION.03607 58206 Information not available 11/23/2022 Are you able to walk independently without assistance or assistive devices? YESWOREST MIGRATION.12511 28761 Information not available 11/23/2022 Do you have difficulty doing errands alone? No MIGRATION.29224 90384 Information not available 11/23/2022 Are you able to care for yourself independently? Yes MIGRATION.08952 77907 Information not available 11/23/2022 What is your occupation? Retired MIGRATION.44323 12090 Information not available 11/23/2022 Do you have difficulty dressing, bathing, grooming, or toileting? No MIGRATION.62133 12407 Information not available 11/23/2022 Do you or have you ever used e-cigarettes or vape? Never used electronic cigarettes MIGRATION.96181 62257 Information not available 11/23/2022 What is your exercise level? Occasional very active MIGRATION.66312 93396 Information not available 11/23/2022 Mental Status Question Answer Note LastModified by Organizat ion Details LastModified Time Do you feel stressed (tense, restless, nervous, or anxious, or unable to sleep at night)? [id number] Information not available 08/13/2024 Do you have difficulty concentrating, remembering or making decisions? Yes Information no t available 02/05/2024 Family History Nothing Reported Notes:Heart problems (mom/da d) Medical History Condition Response BLINDNESS N RHEUMATIC FEVER N BLADDER PROBLEMS N KIDNEY STONES N MRSA N OTHER # 1 N POLIO N LUNG DISEASE/DISORDER N HISTORY OF DRUG ABUSE N RADIATION / CHEMOTHERAPY N COPD N Other # 2 N BLOOD DISEASES N SURGERY N EAR OR HEARING PROBLEMS N MUMPS N SHINGLES N BOWEL PROBLEMS N DEPRESSION (INCLUDING POST ) N FEMALE PROBLEMS / INFECTIONS N STROKE/TIA N THYROID DISEASE N ULCERS N BENIGN PROSTATIC HYPERPLASIA N MEASLES N CERVICALGIA N TB SKIN TEST N HYPOTENSION N MYOCARDIAL INFARCTION N PARAPELGIA N OBESITY N GERD/NAUSEA N ANEURYSM N URINARY/BLADDER/KIDNEY PROBLEMS N CORONARY ARTERY DISEASE (CAD) N MENIERE'S DISEASE N ADDICTION CONCERNS N ENDOMETRIOSIS N USE OF BLOOD THINNERS N SKIN PROBLEMS N EMPHYSEMA N GASTROINTESTINAL DISORDER N MUSCLE,JOINT OR BONE PROBLEMS N GASTROINTESTINAL BLEEDING N BLOOD CLOTS N ASTHMA N CATARACTS N ERECTILE DYSFUNCTION N GI PROBLEMS N CHF N Low Testosterone N NEUROPATHY N INFERTILITY N AIDS/HIV N FRACTURES N CHEMOTHERAPY / RADIATION N VISION/EYE PROBLEMS N LIVER DISEASE N MALE HYPOGONADISM N HYPERTENSION Y TOURETTE'S N ANXIETY DISORDER N BLOOD TRANSFUSION N ANEMIA/BLOOD DISORDER N CHRONIC EAR INFECTIONS N BRONCHITIS N TUBERCULOSIS N GLAUCOMA N FOOT PROBLEM N DIVERTICULITIS N SLEEP APNEA N CHICKENPOX N ALLERGIES/HAYFEVER N INFECTIOUS DISEASE N PROSTATE N HEART ARRHYTHMIA N INSOMNIA N HIGH CHOLESTEROL / HYPERLIPIDEMIA Y HYPERTHYROIDISM N EYE PROBLEMS N EATING DISORDER N EDEMA N CHRONIC PAIN SYNDROME N CONSTIPATION N CAROTID BLOCKAGE N BACK / NECK PROBLEMS Y HAVE YOU BEEN HOSPITALIZED OR SEEN IN [facility] IN THE PAST YEAR ? N ATHEROSCLEROSIS N BREAST PROBLEMS N DIALYSIS N ECZEMA N FIBROMYALGIA N OSTEOPOROSIS N ARTHRITIS N NO SIGNIFICANT PAST MEDICAL HISTORY N APPENDICITIS N DIABETES, TYPE N BAD TEETH N HEARTBURN / REFLUX N ADD/ADHD N AUTISM SPECTRUM DISORDER (ASD) N HEPATITIS / LIVER DISEASE N PULMONARY DISEASE N GOUT N SLEEP DISORDER N ALZHEIMER'S DISEASE N PAIN N HERPES N DEMENTIA N SEIZURES/EPILEPSY N HEADACHES/MIGRAINES N VASCULAR DISEASE N PACEMAKER N DIZZINESS N KIDNEY DISEASE N HEART DISEASE/HEART PROBLEMS N SCARLET FEVER N MULTIPLE SCLEROSIS N MENTAL DISORDER/ILLNESS N DEVELOPMENTAL OR BEHAVIORAL DISORDERS N CARDIAC ARRHYTHMIA N CANCER: SPECIFY N PNEUMONIA N Gall Stones N ATRIAL FIBRILLATION N PULMONARY EMBOLISM N AUTOIMMUNE DISEASE N Gynecological History Statement/Question Response If Post Menopausal, Age at Menopause 28 Date of Last Mammogram 04/30/2021 Date of Last Colonoscopy Date of LMP Most Recent Bone Density 03/03/2022 Most Recent Mammogram 09/28/2022 Obstetrics History GPAL:G 0 P 0 0 0 0 Immunizations Vaccine Type Date Status Note Provider Nam e and Address Organization Details Recorded Time SARS-COV-2 (COVID-19) vaccine, UNSPECIFIED 3 completed Julieta Underwood RN [facility], [place] [facility] 07/18/2023 08:56:28 influenza, unspecified formulation 3 completed Julieta Carrizales NP [address] [facility] [facility] [address], [place], [address], [facility] 07/18/2023 09:13:01 Influenza, split virus, trivalent, preservative 3 completed Not Available [facility] 11/23/2022 00:56:14 SARS-COV-2 (COVID-19) vaccine, UNSPECIFIED 2 completed Not Available [facility] 11/23/2022 00:56:14 Influenza, split virus, quadrivalent, preservative 0 completed Not Available [facility] 11/23/2022 00:56:14 zoster live 9 completed Not Available [facility] 11/23/2022 00:56:14 COVID-19 Non-[place] Vaccine, UNSPECIFIED 1 completed Not Available [facility] 11/23/2022 00:56:15 Influenza, high-dose, quadrivalent, PF 1 completed Not Available [facility] 11/23/2022 00:56:15 SARS-COV-2 (COVID-19) vaccine, UNSPECIFIED 1 completed Not Available [facility] 11/23/2022 00:56:15 SARS-COV-2 (COVID-19) vaccine, UNSPECIFIED 1 completed Not Available [facility] 11/23/2022 00:56:15 zoster, unspecified formulation 9 completed Not Available [facility] 11/23/2022 00:56:15 Influenza, split virus, trivalent, preservative 5 completed Not Available [facility] 11/23/2022 00:56:15 Influenza, split virus, trivalent, preservative 4 completed Not Available [facility] 11/23/2022 00:56:15 Tdap 2 completed Not Available [facility] 11/23/2022 00:56:15 Influenza, split virus, trivalent, preservative 2 completed Not Available [facility] 11/23/2022 00:56:15 pneumococcal polysaccharide PPV23 0 completed Not Available [facility] 11/23/2022 00:56:15 Influenza, high-dose, quadrivalent, PF 2 completed Not Available [facility] 11/23/2022 00:56:15 Influenza, high-dose, trivalent, PF 8 completed Not Available [facility] 11/23/2022 00:56:16 Influenza, high-dose, trivalent, PF 7 completed Not Available [facility] 11/23/2022 00:56:16 Influenza, split virus, quadrivalent, PF 9 completed Not Available [facility] 11/23/2022 00:56:16 Past Encounters Encounter ID Performer Location Encounter Start Date Encounter Closed Date Diagnosis/Indication Diagnosis SNOMED-CT Code Diagnosis ICD10 Code Diagnosis IMO Codes Diagnosis Note [id number] [facility] [address] [address] 07/29/2025 14:17:50 07/29/2025 14:31:32 Hyperlipidemia 59658859 E78.5 Well controlled with diet and exercise Elevated blood-pressure reading without diagnosis of hypertension 335005793 R03.0 Discussed decreased sodium, monitor BP at home Hypothyroidism 69025029 E03.9 Will check labs and continue levothyrox ine Vitamin D deficiency 347 95865 E55.9 Diabetes m ellitus screening 705993198 Z13.1 [id number] ANDREW Balderas [address] [address] 08/08/2025 08:30:59 08/08/2025 09:25:58 Health Concerns Section Related Observation LastModified by Organization Detai ls LastModified Time None Recorded Concern Status LastModified by Organization Details LastModified Time None Recorded Payers Encounter Date Sequence Insurance Name Policy Number Policy Amaral Covered Member ID Amaral Member ID Guarantor Name 08/08/2025 1 [employer] (MEDICARE REPLACEMENT/ ADVANTAGE - PPO) [id number] Emperatriz Clark [id number] Emperatriz Clark 08/08/2025 2 [place] Emperatriz Clark [id number] Emperatriz Clark OBGyn Episode No OBEpisode recorded.
--- OUTSIDE RECORDS SUMMARY | 2025-09-19 12:57 | XMS_ITS | Continuity of Care Document ---
Author Organization [place] [facility] [employer] [facility], [facility] [place] Address [address] [place] [address] Care Team Providers Care Accounts Payable Lead Name Role Phone CELESTE BASILIO Primary Care Provider Assessment No assessment recorded. Plan of Treatment Reminders Order Date Submit Date Provider Last Modified By Organization Details Last Modified Time Details Appointments Medicare Wellness 30 2025 09:00A ANDREW Tejeda Not available Not available Not available Lab vitamin D, 25-hydrox y, total, serum [address] (Lab), [address] [place], [address], 08/06/2025 08:38:46 CBC w/ auto diff [address] (Lab), [address] [place], [address], 08/06/2025 08:38:45 glycohemo globin, total, blood [address] (Lab), [address] [place], [address], 08/06/2025 08:38:46 TSH, serum or plasma [address] (Lab), [address] [place], [address], 08/06/2025 08:38:46 lipid panel, serum 2024 025 [facility] (Lab), [address] [place], [address], 08/06/2025 08:38:45 CMP, serum or plasma [email or web address] [facility] (Lab), [address] [place], [address], 08/06/2025 08:38:45 Referral None recorded. Procedures None recorded. Surgeries [...] Address Organization Details Recorded Time Acute sinusitis 45643155 Completed Not Available [facility] 3 00:49:49 Spasm of back muscles 071342684 Active Not Available [facility] 3 00:49:49 Vitamin D deficienc y 49063870 Active Not Available [facility] 3 00:49:49 Hypothyro idism 55784350 Active Not Available [facility] 3 00:49:50 Cough 43426712 Completed Not Available [facility] 3 00:49:50 Hyperlipi demia 65755539 Active Not Available [facility] 3 00:49:50 Congestio n of nasal sinus 78026060 Completed Not Available [facility] 3 00:49:50 Psoriasis 3001008 Active Not Available [facility] 3 00:49:51 Hearing loss 59999352 Active 2017 Not Available [facility] 3 00:49:49 Muscle strain 25199021 Completed 201802/05/2024 ANDREW Balderas [address] [facility], [place], [address] , [facility] [employer] [facility] 4 08:43:28 Paresthes ia of upper limb 01600782 Active 2018 Not Available [facility] 3 00:49:51 Pain in left knee Active 2018 Not Available [facility] 3 00:49:49 Osteopeni a 433723325 Active 2019 Not Available [facility] 3 00:49:49 Screening mammograp hy of bilateral breasts Active 2020 Not Available [facility] 3 00:49:50 Elevated blood-pre ssure reading without diagnosis of hypertens ion 690237525 Active 2020 Not Available [facility] 3 00:49:50 Chronic low back pain 290459768 Active 2020 Not Available [facility] 3 00:49:49 Scoliosis deformity of spine 789326532 Active 2020 Not Available [facility] 3 00:49:49 Low back pain 270757572 Active 2020 Not Available [facility] 3 00:49:49 Vertigo 433821333 Active 2021 Not Available [facility] 3 00:49:50 Osteoarth ritis 886010766 Active 2021 Not Available [facility] 3 00:49:50 Weight loss 68010828 Active 2021 Not Available [facility] 3 00:49:51 Pain of right hip joint 75445557416 9102 Active 2022 Julieta Carrizales NP [address] [facility], [address] [address], [place], [address] , [employer] [facility] [employer] [facility] 3 09:17:02 Excess skin of eyelid 224065681 Active 2022 Julieta Carrizales NP [address] [facility] [address], [place], [address] , [facility] 3 09:18:44 Benign paroxysma l positiona l vertigo 303465515 Active 2023 ANDREW Balderas [address], [place], [address] , [employer] 4 10:22:38 Psoriasis of scalp 919349834 Active 2023 ANDREW Balderas [address], [address], [place], [address] , [employer] 4 09:45:40 Loss of hair 553775213 Active 2023 ANDREW Balderas [address], [place], [address] , [employer] 4 09:45:56 Problem Notes None recorded. Procedures Surgical History Date Name Laterality Status Provider Name and Address Organization Details Recorded Time 08/13/20 Medicare Wellness CPT Code, subsequent completed ANDREW Balderas [address] [employer], [place], [address], [employer] 08/13/2024 10:15:35 09/28/19 23 Most Recent Mammogram completed Not Available [facility] 11/23/2022 00:44:15 03/03/20 22 Most Recent Bone Density completed Not Available [facility] 11/23/2022 00:44:15 09/25/18 70 Hysterectomy completed Not Available [facility] 023 00:44:19 decompression of ulnar nerve completed Not Available [facility] 11/23/2022 00:44:19 Knee Surgery completed Not Available [facility] 11/23/2022 00:44:19 Imaging Results None recorded. Procedure [...] Not Available Not Available Not Available Vitals Date Recorded Body height Body mass index (BMI) Body weight Body temperature Respiratory rate Heart rate Oxygen saturation Pain severity - 0-10 verbal numeric rating [Score] - Reported Systolic And Diastolic Provider Name and Address Organization Details Last Updated DateTime 5 168.91 cm 25.4 kg/m2 29005.7 8 g 97.3 [degF] 24 /min 81 /min 97 % 1 152/82 mm[Hg] Julieta Underwood RN [place] [facility] [place] [employer] 5 14:37:35 Social History Question Answer Notes LastModified by Organizat ion Details LastModified Time Tobacco Smoking Status Never Smoker Not Available [facility] 11/23/2022 00:43:20 Do You Have An Advance Directive? No MIGRATION.77855 62264 Information not available 11/23/2022 Are You Blind Or Do You Have Difficulty Seeing? No MIGRATION.95632 19920 Information not available 11/23/2022 Is Blood Transfusion Acceptable In An Emergency? Yes Information not available 01/12/2023 What Is Your Level Of Caffeine Consumption? Moderate MIGRATION.54338 99055 Information not available 11/23/2022 How Much Tobacco Do You Chew? None MIGRATION.02121 72264 Information not available 11/23/2022 What Is Your Code Status? Full Code Does Not Want To Be Kept Alive If Brain Information not available 01/12/2023 In The 14 Days Before Symptom Onset, Have You Had Close Contact With A Laboratory-confi rmed COVID-19 While That Case Was Ill? No MIGRATION.57771 51100 Information not available 11/23/2022 In The 14 Days Before Symptom Onset, Have You Had Close Contact With A Person Who Is Under Investigation For COVID-19 While That Person Was Ill? No MIGRATION.41735 82418 Information not available 11/23/2022 Are You Deaf Or Do You Have Serious Difficulty Hearing? Yes Hearing Aides Dont Use MIGRATION.60856 99287 Information not available 11/23/2022 What Type Of Diet Are You Following? REGULAR MIGRATION.97744 70150 Information not available 11/23/2022 Which Illicit Or Recreational Drugs Have You Used? None MIGRATION.51866 48753 Information not available 11/23/2022 Have There Been Any Changes To Your Family Or Social Situation? No MIGRATION.13659 53717 Information not available 11/23/2022 Do You Use Insect Repellent Routinely? Yes MIGRATION.73329 67159 Information not available 11/23/2022 Where Do You Live? [facility] Information not available 07/18/2023 Advance Directive- [...] Do You Have A Medical Power Of Shirt Cleaner? No Information not available 01/12/2023 What Was The Date Of Your Most Recent Tobacco Screening? 07/14/2022 MIGRATION.75994 87485 Information not available 11/23/2022 Do You Have Any Pets? No MIGRATION.17525 86171 Information not available 11/23/2022 What Is Your Relationship Status? MIGRATION.27849 73503 Information not available 11/23/2022 Do You Use Your Seat Belt Or Car Seat Routinely? Yes MIGRATION.56155 99595 Information not available 11/23/2022 Do You Have Smoke And Carbon Monoxide Detectors In Your Home? Yes MIGRATION.74548 91305 Information not available 11/23/2022 Are There Any Smokers In Your House? No MIGRATION.06042 38401 Information not available 11/23/2022 Do You Participate In Social Media? No MIGRATION.00342 10459 Information not available 11/23/2022 Do You Use Sunscreen Routinely? Yes MIGRATION.47832 51051 Information not available 11/23/2022 Has Tobacco Cessation Counseling Been Provided? No MIGRATION.01061 06799 Information not available 11/23/2022 Have You Recently Traveled Abroad? No MIGRATION.77988 24815 Information not available 11/23/2022 Do You Have Difficulty Walking Or Climbing Stairs? Yes Information not available 02/05/2024 Are You Currently In School? No Information not available 02/05/2024 Do You Have Any Dietary Restrictions? No MIGRATION.54217 98730 Information not available 11/23/2022 Sex: Female Functional Status Question Answer Note LastModified by Organizat ion Details LastModified Time Do you use any illicit or recreational drugs? No MIGRATION.89785 38020 Information not available 11/23/2022 What is your level of alcohol consumption? None MIGRATION.34419 68734 Information not available 11/23/2022 Do you or have you ever used smokeless tobacco? Never used smokeless tobacco MIGRATION.84617 81811 Information not available 11/23/2022 Are you currently employed? No Information not available 02/05/2024 Do you have transportation difficulties? No MIGRATION.93978 68474 Information not available 11/23/2022 Are you able to walk independently without assistance or assistive devices? YESWOREST MIGRATION.52348 74581 Information not available 11/23/2022 Do you have difficulty doing errands alone? No MIGRATION.29695 35023 Information not available 11/23/2022 Are you able to care for yourself independently? Yes MIGRATION.25848 05722 Information not available 11/23/2022 What is your occupation? Retired MIGRATION.77711 50599 Information not available 11/23/2022 Do you have difficulty dressing, bathing, grooming, or toileting? No MIGRATION.10556 68381 Information not available 11/23/2022 Do you or have you ever used e-cigarettes or vape? Never used electronic cigarettes MIGRATION.62276 58153 Information not available 11/23/2022 What is your exercise level? Occasional very active MIGRATION.79226 06193 Information not available 11/23/2022 Mental Status Question Answer Note LastModified by Organizat ion Details LastModified Time Do you feel stressed (tense, restless, nervous, or anxious, or unable to sleep at night)? [id number] Information not available 08/13/2024 Do you have difficulty concentrating, remembering or making decisions? Yes Information no t available 02/05/2024 Family History Nothing Reported Notes:Heart problems (mom/da d) Medical History Condition Response BLINDNESS N RHEUMATIC FEVER N KIDNEY STONES N BLADDER PROBLEMS N MRSA N OTHER # 1 N POLIO N LUNG DISEASE/DISORDER N HISTORY OF DRUG ABUSE N RADIATION / CHEMOTHERAPY N COPD N Other # 2 N BLOOD DISEASES N SURGERY N EAR OR HEARING PROBLEMS N MUMPS N SHINGLES N BOWEL PROBLEMS N FEMALE PROBLEMS / INFECTIONS N DEPRESSION (INCLUDING POST ) N STROKE/TIA N THYROID DISEASE N ULCERS N BENIGN PROSTATIC HYPERPLASIA N MEASLES N CERVICALGIA N HYPOTENSION N TB SKIN TEST N MYOCARDIAL INFARCTION N PARAPELGIA N OBESITY [...] GLAUCOMA N FOOT PROBLEM N DIVERTICULITIS N CHICKENPOX N SLEEP APNEA N ALLERGIES/HAYFEVER N INFECTIOUS DISEASE N HEART ARRHYTHMIA N PROSTATE N INSOMNIA N HIGH CHOLESTEROL / HYPERLIPIDEMIA Y HYPERTHYROIDISM N EYE PROBLEMS N EATING DISORDER N EDEMA N CHRONIC PAIN SYNDROME N CONSTIPATION N CAROTID BLOCKAGE N BACK / NECK PROBLEMS Y HAVE YOU BEEN HOSPITALIZED OR SEEN IN [facility] IN THE PAST YEAR ? N ATHEROSCLEROSIS [...] N PAIN N HERPES N DEMENTIA N HEADACHES/MIGRAINES N SEIZURES/EPILEPSY N VASCULAR DISEASE N PACEMAKER N DIZZINESS N HEART DISEASE/HEART PROBLEMS N KIDNEY DISEASE N DEVELOPMENTAL OR BEHAVIORAL DISORDERS N MULTIPLE SCLEROSIS N SCARLET FEVER N MENTAL DISORDER/ILLNESS N CARDIAC ARRHYTHMIA N CANCER: SPECIFY N PNEUMONIA N ATRIAL FIBRILLATION N Gall Stones N PULMONARY EMBOLISM N AUTOIMMUNE DISEASE N [...] vaccine, UNSPECIFIED 3 completed Julieta Underwood RN null, [facility] [employer] 07/18/2023 08:56:28 influenza, unspecified formulation 3 completed Julieta Carrizales NP [address] [facility], [place], [address], [facility] [employer] [facility] [employer] 07/18/2023 09:13:01 Influenza, split virus, trivalent, preservative 3 completed Not Available [facility] 11/23/2022 00:56:14 SARS-COV-2 (COVID-19) vaccine, UNSPECIFIED 2 completed Not Available [facility] 11/23/2022 00:56:14 Influenza, split virus, quadrivalent, preservative 0 completed Not Available [facility] 11/23/2022 00:56:14 zoster live 9 completed Not Available [facility] 11/23/2022 00:56:14 COVID-19 Non-US Vaccine, UNSPECIFIED 1 completed Not Available [facility] 11/23/2022 00:56:15 Influenza, high-dose, quadrivalent, PF 1 completed Not Available [facility] 11/23/2022 00:56:15 SARS-COV-2 (COVID-19) vaccine, UNSPECIFIED 1 completed Not Available [facility] 11/23/2022 00:56:15 SARS-COV-2 (COVID-19) vaccine, UNSPECIFIED 1 completed Not Available [facility] 11/23/2022 00:56:15 zoster, unspecified formulation 9 completed Not Available [facility] 11/23/2022 00:56:15 Influenza, split virus, trivalent, preservative 5 completed Not Available [facility] 11/23/2022 00:56:15 Influenza, split virus, trivalent, preservative 4 completed Not Available [facility] 11/23/2022 00:56:15 Tdap 2 completed Not Available [facility] 11/23/2022 00:56:15 Influenza, split virus, trivalent, preservative 2 completed Not Available [facility] 11/23/2022 00:56:15 pneumococcal polysaccharide PPV23 0 completed Not Available [facility] 11/23/2022 00:56:15 Influenza, high-dose, quadrivalent, PF 2 completed Not Available [facility] 11/23/2022 00:56:15 Influenza, high-dose, trivalent, PF 8 completed Not Available [facility] 11/23/2022 00:56:16 Influenza, high-dose, trivalent, PF 7 completed Not Available [facility] 11/23/2022 00:56:16 Influenza, split virus, quadrivalent, PF 9 completed Not Available [facility] 11/23/2022 00:56:16 Past Encounters Encounter ID Performer Location Encounter Start Date Encounter Closed Date Diagnosis/Indication Diagnosis SNOMED-CT Code Diagnosis ICD10 Code Diagnosis IMO Codes Diagnosis Note [id number] ANDREW Balderas [facility] [address] [address] 07/29/2025 14:17:50 07/29/2025 14:31:32 Hyperlipidemia 18736452 E78.5 Well controlled with diet and exercise Elevated blood-pressure reading without diagnosis of hypertension 061890655 R03.0 Discussed decreased sodium, monitor BP at home Hypothyroidism 39595618 E03.9 Will check labs and continue levothyrox ine Vitamin D deficiency 347 87329 E55.9 Diabetes m ellitus screening 420142672 Z13.1 690688 Health Concerns Section Related Observation LastModified by Organization Detai ls LastModified Time None Recorded Concern Status LastModified by Organization Details LastModified Time None Recorded Payers Encounter Date Sequence Insurance Name Policy Number Policy Amaral Covered Member ID Amaral Member ID Guarantor Name 07/29/2025 1 [employer] (MEDICARE REPLACEMENT/ ADVANTAGE - PPO) [id number] Emperatriz Clark [id number] Emperatriz Clark 07/29/2025 2 [place] Emperatriz Clark [id number] Emperatriz Clark Notes Date Note Type Note Provider Name and Address Organization Details Recorded Time 07/29/2025 text/html Emperatriz Clark is an 84 year old female patient here today for a MAWV. She has hypothyroidism, she states she is gaining weight and losing her hair. She has recently moved into custodial. She notes she is getting bored. Annual vaccines UTDMammogram: does not want to do anymorePAP: does not want to do anymoreColonoscopy : does not want to do anymore.DEXA scan: 05/14/24 osteopenia. 2 year FU recommended Celeste Basilio, ANDREW [address] [facility], [place], [address], [place] [facility] 07/29/2025 15:05:38 OBGyn Episode No OBEpisode recorded.
--- OUTSIDE RECORDS SUMMARY | 2025-09-19 12:58 | XMS_ITS | Clinical Summary ---
Author Organization [facility] Address [address] [place] [id number] Care Team Providers Care Senior Finance Manager Name Role Phone Adan Stockton MD Primary Care Provider [phone] Allergies No known active allergies Social History Tobacco Use Types Packs/Day Years Used Date Smoking Tobacco: Never Smokeless Tobacco: Never Alcohol Use Standard Drinks/Week Comments Never 0 (1 standard drink = 0.6 oz pur e alcohol) AUDIT-C Answer Date Recorded Q1: How often do you have a drink containing alc ohol? Never 04/30/2021 Average Number of Drinks Not on file 021 Frequency of Binge Drinking Not on file 02/2021 Comments No Sex and Gender Information Value Date Recorded Sex Assigned at Not on file Legal Sex Female 1:35 PM CDT Gender Identity Not on file Sexual Orientation Not on file Last Filed Vital Signs Vital Sign Reading Time Taken Comments Blood Pressure 140/86 04/30/2021 1:57 PM CDT Pulse 88 04/30/2021 1:57 PM CDT Temperature 36.8 C (98.2 F) 04/30/2021 1:57 PM CDT Respiratory Rate 18 04/30/2021 1:57 PM CDT Oxygen Saturation 97% 04/30/2021 1:57 PM CDT Inhaled Oxygen Concentration - - Weight 77.1 kg (170 lb) 04/30/2021 1:57 PM CDT Height 170.2 cm (5' 7) 04/30/2021 1:57 PM CDT Body Mass Index 26.63 04/30/2021 1:57 PM CDT Plan of Treatment Health Maintenance Due Date Last Done Comments Annual Medicare Wellness Visit 2007 Dexa Scan (General) 2007 RSV Immunization or 60+ Years (1 - 1-dose 75+ series) 2017 DTaP, Tdap and Td Vaccines (2 - Td or Tdap) 05/29/2022 05/29/2012 COVID-19 Vaccine (3 - season) 2025 12/17/2020, 12/17/2020, 11/19/2020, Additional history exists Influenza Adult (#1) 2025 06/19/2020, 06/05/2019, 06/19/2018, Additional history exists Pneumococcal Vaccine: 50+ Years Completed 06/13/2016, 06/25/2010 Zoster Vaccines Completed 09/02/2019, 07/02/2019 Hepatitis A Vaccines Aged Out No long er eligible based on patient's age to complete this topic Meningococcal B Vaccine Aged Out No l onger eligible based on patient's age to complete this topic Meningococcal Vaccine Aged Out No blair oneil eligible based on patient's age to complete this topic RSV Immunizations Under 20 Months Aged Out No longer eligible based on patient's age to complete this topic Insurance MEDICARE Advance Directives Documents on File Type Date Recorded Patient Violin Teacher Expl anation Legal Documents 08/16/2022 12:21 PM COMPL ETED ATTNY REQUEST Care Teams Senior Finance Manager Relationship Specialty Start Date End Date Adan Stockton MD PCP - General FAMILY PRACTICE 04/30/21
--- OUTSIDE RECORDS SUMMARY | 2025-09-19 12:58 | XMS_ITS | Data Portability ---
Author Organization [place] - [facility] [employer], Main Office Address [address] [place] [address] Care Team Providers Care Digital Printer Name Role Phone TERE BASILIO Primary Care Provider Assessment No assessment recorded. Plan of Treatment Reminders Order Date Submit Date Provider Last Modified By Organization Details Last Modified Time Details Appointments Medicare Wellness 30 2025 09:00A Crystal Basilio, ANDREW Not available Not available Not available Lab vitamin D, 25-hydrox y, total, serum [address] (Lab), [address] [place], [address], 08/06/2025 08:38:46 CBC w/ auto diff [address] (Lab), [address] [place], [address], 08/06/2025 08:38:45 glycohemo globin, total, blood [address] (Lab), [address] [place], [address], 08/06/2025 08:38:46 TSH, serum or plasma [address] (Lab), [address] [place], [address], 08/06/2025 08:38:46 lipid panel, serum 2024 025 [email or web address] (Lab), [address] [place], [address], 08/06/2025 08:38:45 CMP, serum or plasma 2024 025 [email or web address] (Lab), [address] [place], [address], 08/06/2025 08:38:45 CBC w/ auto diff 2023 024 [email or web address], [address], [place], [address], 08/20/2024 08:26:21 CMP, serum or plasma 2023 024 [email or web address], [address], [place], [address], 08/20/2024 08:26:21 lipid panel, serum 2023 024 [email or web address], [address], [place], [address], 08/20/2024 08:26:21 HbA1c (hemoglob in A1c), blood 2023 024 [email or web address], [address], [place], [address], 08/20/2024 08:26:21 TSH + free T4, serum 2023 024 [email or web address], [address], [place], [address], 08/20/2024 08:26:21 Referral None recorded. Procedures None recorded. Surgeries None recorded. Imaging MAMMO, screening , digital, bilateral - Please call pt to schedule, last scan was 09/28/222023 024 [facility] (Mammography) , [address], [place], [address], 09/23/2024 09:52:21 XR, ribs, unilatera l, 3 or more view 2023 [facility], [address], [place], [address], 02/05/2024 12:23:30 bone density [address] [facility], [address], [place], [address], 05/06/2024 08:12:24 Medication Orders clobetaso l 0.05 % shampoo 2023 [id number], [address] [facility], [place], [place], [id number], 08/13/2024 09:46:34 cyclobenz aprine 5 mg tablet [address] [id number], [address] [facility], [place], [id number], 07/29/2025 14:34:54 Patient TargetsNo targets recorded. Patient Instructions Encounter Date Encounter Id Patient Instructions Last Modified By Organization Details Last Modified Time 02/05/2024 [id number] preventing osteoporosis: care instructions [employer] Not available 02/05/2024 09:07:41 08/13/2024 [id number] dementia rating scale-2* SHANNAN Not available 08/13/2024 10:45:46 multi-dimensiona l health assessment questionnaire* SHANNAN Not available 08/13/2024 10:45:39 care plan* SHANNAN Not available 08/13 10:45:31 advance directiv es: care instructions [facility] Not available 08/13/2024 09:46:26 advance care planning: care instructions [facility] Not available 08/13/2024 09:46:25 [place] Advance Directives [employer] Not available 08/13/2024 09:46:25 Personalized Hea lth Plan and Screening Recommendations Advance Directives - Do you have one? No You have indicated that you are capable of preparing your advance care directive Advance Directives - Do we have your advance directive on file in your health record? Primary Prevention/Interven tion (prevents or decreases the chance of common diseases from occurring) Smoking Risk: Non Smoker Alcohol Misuse Screening: Negative Weight: Appropriate Physical activity: Need more exercise/physical activity decrease sitting time to no more than 5hr/day Nutrition: Good Fall Risk (screened today): Low Vaccines Pneumococcal: No further needed Influenza: Completed at pharmacy Chronic Disease Risks Stroke: Low Risk Active diagnosis, Continue current treatment plan Heart Attack: Low risk Active diagnosis, Continue current treatment plan Clogging of the Arteries: Low risk Active diagnosis, Continue current treatment plan Diabetes: Low Risk Active diagnosis, Continue current treatment plan Secondary Prevention/Interven tion (detects treatable diseases before they may cause symptoms, disability, or ) Breast Cancer Screening with mammogram: Patient does not want to do anymore Cervical/Uterine/Ov gratn Cancer Screening: No screening necessary Osteoporosis Screening: Your next DEXA in: 2025 Date Screening Last Performed: Colon Cancer Screening: Cologuard (DNA stool test) No screening necessary Date Screening Last Performed: 07/24/23 Eye Disease Screening: Will go to [facility], plans to call and schedule an appt today Dementia Risk: Low Depression Screening: Negative Active diagnosis, Continue current treatment plan [place] Not available 08/13/2024 09:32:40 Reason for Referral None Reported. Results Created Date Observation Date Name Description Value Unit Range Abnormal Flag Note LastModifiedBy Organization Detail LastModifiedTime 02/05/2002/05/2024 XR, ribs, unila teral , 3 or more view No observ ation record ed. [facility] [address], [place], [address], 02/05/2024 12:42:12 05/15/20 24 05/14/2024 bone densi ty No observ ation record ed. [facility] [address], [place], [address], 05/17/2024 09:51:46 09/23/20 24 09/21/2024 MAMMO , scree donovan, digit al, bilat eral No observ ation record ed. [facility] [address], [place], [address], 09/26/2024 11:52:27 Result Notes None recorded. Problems Name Problem SNOMED Code Status Onset Date Resolution Date Notes Provider Name and Address Organization Details Recorded Time Acute sinusitis 12252958 Completed Not Available [facility] 3 00:49:49 Spasm of back muscles 893821291 Active Not Available [facility] 3 00:49:49 Vitamin D deficienc y 53557403 Active Not Available [facility] 3 00:49:49 Hypothyro idism 97564614 Active Not Available [facility] 3 00:49:50 Cough 98538509 Completed Not Available [facility] 3 00:49:50 Hyperlipi demia 15268689 Active Not Available [facility] 3 00:49:50 Congestio n of nasal sinus 76469684 Completed Not Available [facility] 3 00:49:50 Psoriasis 5319026 Active Not Available [facility] 3 00:49:51 Hearing loss 69320536 Active 2017 Not Available [facility] 3 00:49:49 Muscle strain 53594788 Completed 201802/05/2024 Tere Basilio, ENTRY SPECIALIST [address] [facility], [facility] [address], [place], [address] , [facility] 4 08:43:28 Paresthes ia of upper limb 09480140 Active 2018 Not Available [facility] 3 00:49:51 Pain in left knee Active 2018 Not Available [facility] 3 00:49:49 Osteopeni a 511824922 Active 2019 Not Available [facility] 3 00:49:49 Screening mammograp hy of bilateral breasts Active 2020 Not Available [facility] 3 00:49:50 Elevated blood-pre ssure reading without diagnosis of hypertens ion 697277973 Active 2020 Not Available [facility] 3 00:49:50 Chronic low back pain 335746505 Active 2020 Not Available [facility] 3 00:49:49 Scoliosis deformity of spine 406522380 Active 2020 Not Available [facility] 3 00:49:49 Low back pain 494915694 Active 2020 Not Available [facility] 3 00:49:49 Vertigo 195549276 Active 2021 Not Available [facility] 3 00:49:50 Osteoarth ritis 893569777 Active 2021 Not Available [facility] 3 00:49:50 Weight loss 81348281 Active 2021 Not Available [facility] 3 00:49:51 Pain of right hip joint 29612027460 9102 Active 2022 Julieta Carrizales NP [address], [address], [place], [address] , [facility] 3 09:17:02 Excess skin of eyelid 591426178 Active 2022 Julieta Carrizales NP [address], [address], [place], [address] , [facility] 3 09:18:44 Benign paroxysma l positiona l vertigo 664530756 Active 2023 ANDREW Balderas [address], [address], [place], [address] , [facility] 4 10:22:38 Psoriasis of scalp 494629965 Active 2023 ANDREW Balderas [address], [address], [place], [address] , [facility] 4 09:45:40 Loss of hair 948621915 Active 2023 ANDREW Balderas [address], [address], [place], [address] , [employer] [facility] [facility] 09:45:56 Problem Notes None recorded. Procedures Surgical History Date Name Laterality Status Provider Name and Address Organization Details Recorded Time 08/13/20 24 Medicare Wellness CPT Code, subsequent completed Tere Basilio, ENTRY SPECIALIST [address], [place], [address], [facility] 08/13/2024 10:15:35 09/28/19 23 Most Recent Mammogram completed Not Available [facility] 11/23/2022 00:44:15 03/03/20 22 Most Recent Bone Density completed Not Available [facility] 11/23/2022 00:44:15 09/25/18 70 Hysterectomy completed Not Available [facility] 023 00:44:19 decompression of ulnar nerve completed Not Available [facility] 11/23/2022 00:44:19 Knee Surgery completed Not Available [facility] 11/23/2022 00:44:19 Imaging Results None recorded. Procedure [...] mass index (BMI) Body weight Body temperature Heart rate Oxygen saturation Pain severity - 0-10 verbal numeric rating [Score] - Reported Respiratory rate Systolic And Diastolic Provider Name and Address Organization Details Last Updated DateTime 4 168.91 cm 25.8 kg/m2 40397.4 1 g 96.8 [degF] 69 /min 99 % 0 24 /min 150/98 mm[Hg] Julieta Underwood RN [place] [facility] 4 08:32:33 Date Recorded Body height Body mass index (BMI) Body weight Body temperature Respiratory rate Heart rate Oxygen saturation Pain severity - 0-10 verbal numeric rating [Score] - Reported Systolic And Diastolic Provider Name and Address Organization Details Last Updated DateTime 5 168.91 cm 25.4 kg/m2 40792.7 8 g 97.3 [degF] 24 /min 81 /min 97 % 1 152/82 mm[Hg] Julieta Underwood RN [facility] [employer] 5 14:37:35 Date Recorded Body height Body mass index (BMI) Body weight Body temperature Heart rate Respiratory rate Oxygen saturation Pain severity - 0-10 verbal numeric rating [Score] - Reported Systolic And Diastolic Provider Name and Address Organization Details Last Updated DateTime 4 168.91 cm 25.8 kg/m2 25262.3 6 g 97.3 [degF] 74 /min 20 /min 95 % 0 158/80 mm[Hg] Julieta Underwood RN [facility] 4 09:12:15 Social History Question Answer Notes LastModified by Organizat ion Details LastModified Time Tobacco Smoking Status Never Smoker Not Available [facility] 11/23/2022 00:43:20 Do You Have An Advance Directive? No MIGRATION.[id number] [id number] Information not available 11/23/2022 Are You Blind Or Do You Have Difficulty Seeing? No MIGRATION.53219 14030 Information not available 11/23/2022 Is Blood Transfusion Acceptable In An Emergency? Yes Information not available 01/12/2023 What Is Your Level Of Caffeine Consumption? Moderate MIGRATION.50889 14603 Information not available 11/23/2022 How Much Tobacco Do You Chew? None MIGRATION.36938 63019 Information not available 11/23/2022 What Is Your Code Status? Full Code Does Not Want To Be Kept Alive If Brain Information not available 01/12/2023 In The 14 Days Before Symptom Onset, Have You Had Close Contact With A Laboratory-confi rmed COVID-19 While That Case Was Ill? No MIGRATION.16514 38476 Information not available 11/23/2022 In The 14 Days Before Symptom Onset, Have You Had Close Contact With A Person Who Is Under Investigation For COVID-19 While That Person Was Ill? No MIGRATION.93426 54152 Information not available 11/23/2022 Are You Deaf Or Do You Have Serious Difficulty Hearing? Yes Hearing Aides Dont Use MIGRATION.93661 21004 Information not available 11/23/2022 What Type Of Diet Are You Following? REGULAR MIGRATION.62304 04768 Information not available 11/23/2022 Which Illicit Or Recreational Drugs Have You Used? None MIGRATION.57363 07903 Information not available 11/23/2022 Have There Been Any Changes To Your Family Or Social Situation? No MIGRATION.03225 85263 Information not available 11/23/2022 Do You Use Insect Repellent Routinely? Yes MIGRATION.61257 50085 Information not available 11/23/2022 Where Do You Live? [facility] Information not available 07/18/2023 Advance Directive- Providers [...] Do You Have A Medical Power Of Developing Machine Tender? No Information not available 01/12/2023 What Was The Date Of Your Most Recent Tobacco Screening? 07/14/2022 MIGRATION.05317 59613 Information not available 11/23/2022 Do You Have Any Pets? No MIGRATION.98381 05630 Information not available 11/23/2022 What Is Your Relationship Status? MIGRATION.18249 57609 Information not available 11/23/2022 Do You Use Your Seat Belt Or Car Seat Routinely? Yes MIGRATION.07848 76282 Information not available 11/23/2022 Do You Have Smoke And Carbon Monoxide Detectors In Your Home? Yes MIGRATION.28463 64948 Information not available 11/23/2022 Are There Any Smokers In Your House? No MIGRATION.12491 20546 Information not available 11/23/2022 Do You Participate In Social Media? No MIGRATION.74029 26566 Information not available 11/23/2022 Do You Use Sunscreen Routinely? Yes MIGRATION.31658 96579 Information not available 11/23/2022 Has Tobacco Cessation Counseling Been Provided? No MIGRATION.14101 92173 Information not available 11/23/2022 Have You Recently Traveled Abroad? No MIGRATION.83048 41769 Information not available 11/23/2022 Do You Have Difficulty Walking Or Climbing Stairs? Yes Information not available 02/05/2024 Are You Currently In School? No Information not available 02/05/2024 Do You Have Any Dietary Restrictions? No MIGRATION.24964 84173 Information not available 11/23/2022 Sex: Female Functional Status Question Answer Note LastModified by Organizat ion Details LastModified Time Do you use any illicit or recreational drugs? No MIGRATION.33587 42996 Information not available 11/23/2022 What is your level of alcohol consumption? None MIGRATION.74359 53396 Information not available 11/23/2022 Do you or have you ever used smokeless tobacco? Never used smokeless tobacco MIGRATION.80230 57894 Information not available 11/23/2022 Are you currently employed? No Information not available 02/05/2024 Do you have transportation difficulties? No MIGRATION.48614 30357 Information not available 11/23/2022 Are you able to walk independently without assistance or assistive devices? YESWOREST MIGRATION.90851 31845 Information not available 11/23/2022 Do you have difficulty doing errands alone? No MIGRATION.87419 02550 Information not available 11/23/2022 Are you able to care for yourself independently? Yes MIGRATION.66170 32830 Information not available 11/23/2022 What is your occupation? Retired MIGRATION.63374 25480 Information not available 11/23/2022 Do you have difficulty dressing, bathing, grooming, or toileting? No MIGRATION.11539 93068 Information not available 11/23/2022 Do you or have you ever used e-cigarettes or vape? Never used electronic cigarettes MIGRATION.87682 88006 Information not available 11/23/2022 What is your exercise level? Occasional very active MIGRATION.60461 66052 Information not available 11/23/2022 Mental Status Question Answer Note LastModified by Organizat ion Details LastModified Time Do you feel stressed (tense, restless, nervous, or anxious, or unable to sleep at night)? [id number] Information not available 08/13/2024 Do you have [...] INSOMNIA N HIGH CHOLESTEROL / HYPERLIPIDEMIA Y EYE PROBLEMS N HYPERTHYROIDISM N EATING DISORDER N EDEMA N CHRONIC PAIN SYNDROME N CAROTID BLOCKAGE N CONSTIPATION N BACK / NECK PROBLEMS Y HAVE YOU BEEN HOSPITALIZED OR SEEN IN [facility] IN THE PAST YEAR ? N [...] DISORDER N ALZHEIMER'S DISEASE N PAIN N DEMENTIA N HERPES N SEIZURES/EPILEPSY N HEADACHES/MIGRAINES N VASCULAR DISEASE N PACEMAKER N DIZZINESS N HEART DISEASE/HEART PROBLEMS N KIDNEY DISEASE N SCARLET FEVER N MULTIPLE SCLEROSIS N DEVELOPMENTAL OR BEHAVIORAL DISORDERS N MENTAL DISORDER/ILLNESS N CANCER: SPECIFY N CARDIAC ARRHYTHMIA N PNEUMONIA N ATRIAL FIBRILLATION N Gall [...] vaccine, UNSPECIFIED 3 completed Julieta Underwood RN [place], [place] [employer] [facility] [employer] [facility] 07/18/2023 08:56:28 influenza, unspecified formulation 3 completed Julieta Carrizales NP [address] [place] [address], [facility] [address], [place], [address], [facility] [employer] [facility] [employer] [facility] 07/18/2023 09:13:01 Influenza, split virus, trivalent, preservative 3 completed Not Available [facility] 11/23/2022 00:56:14 SARS-COV-2 (COVID-19) vaccine, UNSPECIFIED 2 completed Not Available [facility] 11/23/2022 00:56:14 Influenza, split virus, quadrivalent, preservative 0 completed Not Available [facility] 11/23/2022 00:56:14 zoster live 9 completed Not Available [facility] 11/23/2022 00:56:14 COVID-19 Non-US Vaccine, UNSPECIFIED 1 completed Not Available [facility] 11/23/2022 00:56:15 Influenza, high-dose, quadrivalent, PF 1 completed Not Available [facility] 11/23/2022 00:56:15 SARS-COV-2 (COVID-19) vaccine, UNSPECIFIED 1 completed Not Available [facility] 11/23/2022 00:56:15 SARS-COV-2 (COVID-19) vaccine, UNSPECIFIED 1 completed Not Available [facility] 11/23/2022 00:56:15 zoster, unspecified formulation 9 completed Not Available [facility] 11/23/2022 00:56:15 Influenza, split virus, trivalent, preservative 5 completed Not Available [facility] 11/23/2022 00:56:15 Influenza, split virus, trivalent, preservative 4 completed Not Available [facility] 11/23/2022 00:56:15 Tdap 2 completed Not Available [facility] 11/23/2022 00:56:15 Influenza, split virus, trivalent, preservative 2 completed Not Available [facility] 11/23/2022 00:56:15 pneumococcal polysaccharide PPV23 0 completed Not Available [facility] 11/23/2022 00:56:15 Influenza, high-dose, quadrivalent, PF 2 completed Not Available [facility] 11/23/2022 00:56:15 Influenza, high-dose, trivalent, PF 8 completed Not Available [facility] 11/23/2022 00:56:16 Influenza, high-dose, trivalent, PF 7 completed Not Available [facility] 11/23/2022 00:56:16 Influenza, split virus, quadrivalent, PF 9 completed Not Available [facility] 11/23/2022 00:56:16 Past Encounters Encounter ID Performer Location Encounter Start Date Encounter Closed Date Diagnosis/Indication Diagnosis SNOMED-CT Code Diagnosis ICD10 Code Diagnosis IMO Codes Diagnosis Note [id number] Julieta Carrizales NP [facility] [place] [address] [place] [address] 11/25/2020 00:00:00 11/25/2020 08:59:56 [id number] Adan Stockton MD [facility] [address] [place] [address] 1 04/02/2021 00:00:00 04/02/2021 11:07:44 [id number] Adan Stockton MD [facility] [place] [address] [place] [address] 05/05/2021 00:00:00 05/05/2021 10:48:57 [id number] Adan Stockton MD [facility] [place] [address] [place] [address] 05/20/2021 00:00:00 05/20/2021 16:44:29 [id number] Adan Stockton MD [facility] [place] [address] [place] [address] 06/03/2021 00:00:00 06/03/2021 15:36:23 [id number] Adan Stockton MD [facility] [place] [address] [place] [address] 07/13/2021 00:00:00 07/13/2021 14:08:43 [id number] Adan Stockton MD [facility] [place] [address] [place] [address] 08/30/2021 00:00:00 08/30/2021 10:31:08 [id number] Adan Stockton MD [facility] [place] [address] [place] [address] 09/09/2021 00:00:00 09/09/2021 10:45:56 [id number] Adan Stockton MD [facility] [place] [address] [place] [address] 11/11/2021 00:00:00 11/11/2021 12:43:20 [id number] Adan Stockton MD [facility] [place] [address] [place] [address] 11/23/2021 00:00:00 11/23/2021 09:44:24 [id number] Adan Stockton MD [facility] [place] [address] [place] [address] 01/11/2022 00:00:00 01/11/2022 09:50:44 [id number] Adan Stockton MD [address] [address] 03/29/2022 00:00:00 03/29/2022 12:13:26 [id number] Adan Stockton MD [address] [address] 07/15/2022 00:00:00 07/15/2022 09:25:52 [id number] Julieta Carrizales NP [address] [address] 01/12/2023 07:55:30 01/12/2023 08:35:45 Psoriasis 2940898 L40.9 Stable. No flare. Osteoporosis 89880608 M8 1.0 DEXA 03/03/22 osteopenia . Continue ibandronat e 150 mg monthly. Hyperlipidemia 46568341 E78.5 Low fat diet encouraged . No meds. 06/2022 was ok. Hypothyroidism 78348313 E03.9 Levothyrox ine 75 mcg po daily. Osteoarthritis 432963142 M19.90 Calcium and vit d daily. Vitamin D deficiency 347 95682 E55.9 Vit d 50,000 IU po weekly. Chronic low back pain 27 0136636 M54.50 [id number] Julieta Carrizales NP [address] [address] 07/18/2023 08:40:30 07/18/2023 09:48:36 Psoriasis 3149352 L40.9 Stable. No flare. Osteoporosis 76879020 M8 1.0 DEXA 03/03/22 osteopenia . Continue ibandronat e 150 mg monthly. Hyperlipidemia 60626771 E78.5 Low fat diet encouraged . No meds. 06/2022 was ok. new order 07/18/23 Hypothyroidism 11176621 E03.9 Levothyrox ine 75 mcg po daily. labs ordered 07/18/23 Osteoarthritis 566419411 M19.90 Calcium and vit d daily. Vitamin D deficiency 347 16942 E55.9 Vit d 50,000 IU po weekly. Chronic low back pain 27 1508106 M54.50 stable. Screening for malignant neoplasm of colon 494994367 Z12.11 cologuard 07/14/20 ok. Cologuard ordered 07/18/23. Pain of ri ght hip joint 5609597729 20882 M25.551 right hip xray. Referred to ortho. Rotate nsaid and tylenol. Excess skin of eyelid 24 0865470 H02.839 referred to plastics for left upper eyelid skin tag removal. [id number] Adan Stockton MD [address] [address] 02/05/2024 08:21:25 02/05/2024 10:13:13 Osteopenia 200029882 M85.80 Vertigo 412995919 R42 Continue meclizine as needed, can begin to taper. Fall W19.XXXA [id number] Adan Stockton MD [address] [address] 08/13/2024 08:53:25 08/13/2024 10:20:44 Adult health examination 279095474 Z00.00 Screening for disorder 310307735 Z13.9 Psoriasis of scalp 18274 8008 L40.9 Loss of hair 700607334 L 65.[address] OTC rogain Screening mammography 24 478135 Z12.31 [id number] Adan Stockton MD [address] [address] 08/14/2024 08:26:45 08/14/2024 08:40:52 [id number] ANDREW Balderas [address] [address] 07/29/2025 14:17:50 07/29/2025 14:31:32 Hyperlipidemia 58054629 E78.5 Well controlled with diet and exercise Elevated blood-pressure reading without diagnosis of hypertension [id number] R03.0 Discussed decreased sodium, monitor BP at home Hypothyroidism [id number] E03.9 Will check labs and continue levothyrox ine Vitamin D deficiency 347 97011 E55.9 Diabetes m ellitus screening [id number] Z13.1 [id number] ANDREW Balderas [facility] [address] [address] 08/08/2025 08:30:59 08/08/2025 09:25:58 Health Concerns Section Related Observation LastModified by Organization Detai ls LastModified Time None Recorded Concern Status LastModified by Organization Details LastModified Time None Recorded Advance Directives Directive N: Payers Insurance Date Sequence Insurance Name Policy Number Policy Amaral Covered Member ID Amaral Member ID Guarantor Name 08/08/2025 1 [employer] (MEDICARE REPLACEMENT/A DVANTAGE - PPO) [id number] Emperatriz Clark [id number] Emperatriz Clark 08/27/2025 2 [place] Emperatriz Clark [id number] Emperatriz Clark 07/29/2025 2 [place] Emperatriz Clark [id number] Emperatriz Clark 07/29/2025 1 [facility] [employer] (MEDICARE REPLACEMENT HMO-POS) [id number] Emperatriz Clark [id number] Emperatriz Clark Notes Date Note Type Note Provider Name and Address Organization Details Recorded Time 02/05/2024 text/html Emperatriz Clark is an 83 year old female patient here to transition care. She was previously under the care of Julieta Carrizales DNP. She was in the hospital last week. She woke up Monday morning dizzy and nausea. She was dry heaving. She had a full work-up at the hospital including a CT, MRI, ECHO, and multiple labs. All of which came back clear. Her symptoms resolved after the Catalina maneuver and she was discharged to home. Her past medical history is significant for osteopenia. Her last DEXA scan was 03/03/2022. Recommended repeat in 2 years. She is currently taking ibandronate 150 mg PO daily, calcium 500, and vitamin D2 50,000 u weekly. She has a history of hypothyroidism. Her last TSH (07/19/23) was WNLs. She is currently taking levothyroxine 75 mcg PO daily. Her blood pressure on arrival today is 150/98. At home, she is averaging 120-130/70s. She states she believes this is elevated today due to pain.She slipped today getting out of the bathtub and hit her right flank on the edge of the tub. She is having pain in her right rib and back. She was attempting to stand from a sitting position pushing on the edge of the tub and her hand slipped. Flu shot: OVID vaccines: 10/2020, 11/2020, 06/2021, 02/2022, 05/2023Tdap: 05/2012, 02/05/2024Shingles: 06/2019, 08/2019Pneumococcal : PPV23 06/2010, PCV 20 recommended at pharmacyMammogram: negative 09/28/2022ologuard : negative 07/24/2023 ANDREW Balderas [address], [address], [place], [address], [employer] [facility] 02/05/2024 10:09:44 08/13/2024 text/html Emperatriz Clark is an 84 year old female patient here today for a MAWV. She is overall healthy. Concerns today include recently downsizing to a senior apartment and feeling less productive. Annual vaccines UTD ANDREW Balderas [address], [address], [place], [address], [employer] [facility] [employer] 08/14/2024 08:37:08 07/29/2025 text/html Emperatriz Clark is an 84 year old female patient here today for a MAWV. She has hypothyroidism, she states she is gaining weight and losing her hair. She has recently moved into halfway. She notes she is getting bored. Annual vaccines UTDMammogram: does not want to do anymorePAP: does not want to do anymoreColonoscopy: does not want to do anymore.DEXA scan: 05/14/24 osteopenia. 2 year FU recommended ANDREW Balderas [address], [address], [place], [address], [employer] [facility] 07/29/2025 15:05:38 OBGyn Episode No OBEpisode recorded.
--- NOTE | 2025-09-19 14:26 | PC.NURSE ---
family concerned about BP being high. VS retaken BP 160/75, HR 70
[2025-09-19 16:12] LABS: Hematocrit 43.9 % (37.0-47.0); Hemoglobin 15.0 g/dL (12.0-15.0); Immature Granulocyte Percent A 0.2 % (0-0.5); Lymphocytes Absolute Auto 1.60 K/mm3 (0.9-3.2); Mean Corpuscular HGB Conc 34.2 g/dl (32-36); Mean Corpuscular Hemoglobin 31.1 pg (26-34); Mean Corpuscular Volume 91.1 fl (80-100); Nucleated Red Blood Cells Absolute Auto 0.000 K/mm3 (0.0-0.012); Nucleated Red Blood Cells Perc 0.0 % (0.0-0.2); Platelet Count Result 233 k/mm3 (150-375); Red Blood Count 4.82 M/mm3 (4.2-5.4); White Blood Count 5.3 K/mm3 (4.5-10.0)
[2025-09-19] MEDS: MECLIZINE HCL 25 MG TABLET PO (16:54)
[2025-09-19 16:59] LABS: Alanine Aminotransferase 25 U/L (6-35); Albumin Level 4.3 g/dL (3.5-5.1); Alkaline Phosphatase 79 U/L (38-126); Anion Gap 5 mmol/L (4-12); Aspartate Amino Transferase 30 U/L (14-36); Bilirubin,Total 0.8 mg/dL (0.2-1.3); Blood Urea Nitrogen 9 mg/dL (7-17); Calcium 9.8 mg/dL (8.4-10.2); Carbon Dioxide 28 mmol/L (22-30); Chloride 100 mmol/L (98-107); Estimated CRCL calculation 53 ml/min; Estimated Glomerular Filt Rate > 60; Glucose 124 mg/dL (65-110); Potassium 3.1 mmol/L (3.4-5.0); Sodium 133 mmol/L (137-145); Total Protein 7.4 g/dL (6.3-8.2)
[2025-09-19] MEDS: POTASSIUM CHLORIDE 20 MEQ ER TABLET 40 MEQ PO (17:31)
[2025-09-19] MEDS: SODIUM CHLORIDE 0.9% IV 1,000 ML 999 ML IV CONT ×2 (17:31→18:30)
[2025-09-19] MEDS: ONDANSETRON INJ 4 MG/2 ML VIAL IV PUSH (17:31)
[2025-09-19] MEDS: diazePAM INJ (*CRX) 10 MG/2 ML SYRINGE 2.5 MG IV PUSH (18:30)
== END 2025-09-19 19:35 | disposition home or self-care (01) ==
PROVIDERS: Registered Nurse; Emergency Provider Student in an Organized Health Care Education/Training Program
DX: H81.10 Benign paroxysmal vertigo, unspecified ear (principal); E03.9 Hypothyroidism, unspecified; E78.5 Hyperlipidemia, unspecified; E55.9 Vitamin D deficiency, unspecified; L40.9 Psoriasis, unspecified; M81.0 Age-related osteoporosis without current pathological fracture; Z90.710 Acquired absence of both cervix and uterus; Z79.899 Other long term (current) drug therapy
CPT/HCPCS: 36415; 70450; 80053; 85025; 93005; 96361; 96374; 96375; 99284; A9270; J2405; J3360; J7030